=== PATIENT | male | born 1960 | race Caucasian/White ===

== ENCOUNTER 2016-10-13 19:46 | Inpatient (IN) ==
[2016-10-13] MEDS ORDERED: 0.9 % Sodium Chloride 500 ML IVC ONE (19:57)
--- NOTE | 2016-10-13 19:57 | Emergency Department Note ---
Disposition Clinical Impression: Elevated troponin, Defibrillator discharge Disposition: Admitted As Inpatient Condition: Good Time of Disposition: 22:27 General Adult HPI - General Chief complaint: ED Chest Pain Stated complaint: defibrillator firing Time Seen by Provider: 10/13/16 19:56 Nursing Notes Reviewed: Yes Vital Signs Reviewed: Yes - History of Present Illness HPI Narrative: Patient presenting to the emergency department by EMS. He is advising that his interval areas fired 32 times. He was mowing the grass when it began. He has not taken his cardiac medication in about a month [place] - Related Data Home Medications Medication Instructions Recorded Confirmed Furosemide [Lasix] 40 - 60 mg PO DAILY PRN 10/13/16 10/13/16 Allergies Allergy/AdvReac Type Severity Reaction Status Date / Time No Known Allergies Allergy Unverified 02/24/16 09:11 All systems ED: reviewed and negative except as stated. Constitutional: Denies: fever, chills ENT ED: Denies: congestion Cardiovascular: Reports: other (Defibrillator fired 32 times.). Denies: chest pain, palpitations, syncope Respiratory: Denies: cough, dyspnea Gastrointestinal: Denies: abdominal pain, nausea, vomiting, diarrhea Genitourinary: Denies: urgency, dysuria Musculoskeletal: Denies: back pain, neck pain Neurological: Denies: headache, weakness Physical Exam - General Limitations: no limitations General appearance: alert, in no apparent distress - Head Head exam: atraumatic, normocephalic, normal inspection - Eye Eye exam: Present: normal appearance, PERRL, EOMI, scleral icterus - ENT ENT exam: normal exam, normal oropharynx, mucous membranes moist - Neck Neck exam: Present: normal inspection, full ROM, trachea midline - Chest Chest inspection: Present: normal inspection, symmetric chest wall rise. Absent : tenderness - Respiratory Respiratory exam: Present: normal lung sounds bilaterally. Absent: respiratory distress - Cardiovascular Cardiovascular exam: Present: regular rate, normal rhythm. Absent: normal heart sounds - Abdominal Exam Abdominal exam: Present: soft, Non-Tender, normal bowel sounds. Absent: organomegaly - Extremities Exam Extremities exam: Present: normal inspection, full ROM, normal capillary refill. Absent: tenderness, pedal edema - Neurological Exam Neurological exam: Present: alert, oriented X3 - Psychiatric Psychiatric exam: Present: normal affect, normal mood - Skin Skin exam: Present: warm, intact, normal color, diaphoresis. Absent: cyanosis Course Course Narrative: Diaphoretic male patient brought in by EMS. States that his defibrillator fired 32 times. He was outside weed eating when it began. States that he did not lose consciousness. She did pain from the defibrillation but no chest pain. EMS states that the patient was discolored a bluish color in his left upper trunk the radiated up to his neck on their initial arrival but this did clear during transport. This is oxygen saturation was 92% on room air. They gave 4 baby aspirin for nitroglycerin and 4 mg of Zofran. Patient advises that he has not been taking his medication for approximately a month. He states he has been out of the medication he got lost in an airport [place]. He has been taking his Lasix and that is all. He has had his defibrillator for approximately 3 years and is only fired one other time. We will do a cardiac workup on patient get a d-dimer as well due to the cyanosis. We will likely admit the patient to the hospital. - Reevaluation(s) Reevaluation #1: Patient's lab work grossly unremarkable. He does have an elevated troponin which is consistent with his ICD firing. We will admit to the hospital. He has had no episodes always been in the emergency department. Time: 21:04 - Consultations Consultation #1: I spoke with Dr. Rico. He advises to start the patient on 400 mg of amiodarone by mouth while he is down here. Admit to the hospitalist that the cardiology team will see him in the morning. Time: 21:04 Consultation #2: Dr Arana wants to speak with the allergist/md before accepting the Pt. Time: 21:21 Consultation #3: Dr. Arana accepted patient in stable condition. Time: 22:23 Vital Signs Temperature 98.3 F 10/13/16 19:48 Pulse Rate 94 10/13/16 19:48 Respiratory Rate 18 10/13/16 19:48 Blood Pressure 123/80 10/13/16 19:48 O2 Sat by Pulse Oximetry 98 10/13/16 19:48 Temperature 98.3 F 10/13/16 19:48 Pulse Rate 88 10/13/16 21:33 Respiratory Rate 18 10/13/16 21:33 Blood Pressure 126/98 10/13/16 21:33 O2 Sat by Pulse Oximetry 98 10/13/16 21:33 Oxygen Delivery Oxygen Delivery Nasal Cannula Medical Decision Making - Medical Records Medical records reviewed: Yes I reviewed the patient's medical records. - Lab Data Lab results reviewed: Yes I reviewed the patient's lab results. Result diagrams: 10/13/16 20:05 10/13/16 20:05 Lab Results 10/13/16 10/13/16 10/13/16 Range/Units 20:05 20:05 20:05 WBC (4.3-11.1) K/mcL RBC (4.19-5.50) M/mcL Hgb (12.9-16.9) g/dL Hct (37.5-50.1) % MCV (83.0-100.0) fL MCH (28.0-33.3) pg MCHC (31.6-35.5) g/dL RDW (11.5-14.5) % Plt Count (140-400) K/mcL MPV (9.4-12.4) fL Immature Gran % (0-4) % Seg Neutrophils % % Lymphocytes % % Monocytes % % Eosinophils % % Basophils % % Neutrophils # (1.6-8.9) K/mcL Lymphocytes # (0.6-4.6) K/mcL Monocytes # (0.0-1.3) K/mcL Eosinophils # (0.0-0.6) K/mcL Basophils # (0.0-0.2) K/mcL PT 10.2 (9.4-12.1) Seconds INR 1.0 APTT 27.8 (26.0-36.0) Seconds D-Dimer 328 (0-500) ng/mLFEU Sodium (136-145) mEq/L Potassium (3.5-4.5) mEq/L Chloride (98-109) mEq/L Carbon Dioxide (19-29) mEq/L BUN (8-26) mg/dL Creatinine (0.72-1.25) mg/dL Est GFR ( Amer) (> 60) Est GFR (Non-Af Amer) (> 60) BUN/Creatinine Ratio (6-26) Glucose (70-99) mg/dL Calculated Osmolality (280-300) Calcium (8.6-10.8) mg/dL Magnesium (1.6-2.6) mg/dL Total Bilirubin 0.4 (0.2-1.2) mg/dL Direct Bilirubin 0.2 (0.0-0.5) mg/dL Indirect Bilirubin 0.2 (0.0-1.2) mg/dL AST 48 H (5-34) Units/L ALT 46 (0-55) Units/L Alkaline Phosphatase 69 (38-126) Units/L Troponin I (0-0.03) ng/mL B-Natriuretic Peptide 158 H (0-100) pg/mL Serum Total Protein 6.8 (6.0-8.3) g/dL Albumin 3.7 (3.5-5.0) g/dL Globulin 3.1 (2.4-3.5) g/dL Albumin/Globulin Ratio 1.2 (1.1-2.2) Urine Color (Yellow) Urine Clarity (Clear) Urine pH (5.0-8.0) pH Units Ur Specific [place] (1.010-1.025) Urine Protein (Neg-Trace) mg/dL Urine Glucose (UA) (Normal) mg/dL Urine Ketones (Negative) mg/dL Urine Blood (Negative) Urine Nitrite (Negative) Urine Bilirubin (Negative) Urine Urobilinogen (Normal) mg/dL Ur Leukocyte Esterase (Negative) Ur Culture Indicated? (NO) 10/13/16 10/13/16 10/13/16 Range/Units 20:05 20:05 20:05 WBC 6.7 (4.3-11.1) K/mcL RBC 4.98 (4.19-5.50) M/mcL Hgb 15.5 (12.9-16.9) g/dL Hct 44.3 (37.5-50.1) % MCV 89.0 (83.0-100.0) fL MCH 31.1 (28.0-33.3) pg MCHC 35.0 (31.6-35.5) g/dL RDW 12.0 (11.5-14.5) % Plt Count 197 (140-400) K/mcL MPV 9.3 L (9.4-12.4) fL Immature Gran % 0.7 (0-4) % Seg Neutrophils % 64.7 % Lymphocytes % 20.1 % Monocytes % 10.0 % Eosinophils % 3.6 % Basophils % 0.9 % Neutrophils # 4.4 (1.6-8.9) K/mcL Lymphocytes # 1.4 (0.6-4.6) K/mcL Monocytes # 0.7 (0.0-1.3) K/mcL Eosinophils # 0.2 (0.0-0.6) K/mcL Basophils # 0.1 (0.0-0.2) K/mcL PT (9.4-12.1) Seconds INR APTT (26.0-36.0) Seconds D-Dimer (0-500) ng/mLFEU Sodium 141 (136-145) mEq/L Potassium 3.7 (3.5-4.5) mEq/L Chloride 106 (98-109) mEq/L Carbon Dioxide 23 (19-29) mEq/L BUN 18 (8-26) mg/dL Creatinine 1.33 H (0.72-1.25) mg/dL Est GFR ( Amer) > 60 (> 60) Est GFR (Non-Af Amer) 56 L (> 60) BUN/Creatinine Ratio 14 (6-26) Glucose 91 (70-99) mg/dL Calculated Osmolality 293 (280-300) Calcium 8.7 (8.6-10.8) mg/dL Magnesium 2.2 (1.6-2.6) mg/dL Total Bilirubin (0.2-1.2) mg/dL Direct Bilirubin (0.0-0.5) mg/dL Indirect Bilirubin (0.0-1.2) mg/dL AST (5-34) Units/L ALT (0-55) Units/L Alkaline Phosphatase (38-126) Units/L Troponin I 0.34 H* (0-0.03) ng/mL B-Natriuretic Peptide (0-100) pg/mL Serum Total Protein (6.0-8.3) g/dL Albumin (3.5-5.0) g/dL Globulin (2.4-3.5) g/dL Albumin/Globulin Ratio (1.1-2.2) Urine Color (Yellow) Urine Clarity (Clear) Urine pH (5.0-8.0) pH Units Ur Specific [place] (1.010-1.025) Urine Protein (Neg-Trace) mg/dL Urine Glucose (UA) (Normal) mg/dL Urine Ketones (Negative) mg/dL Urine Blood (Negative) Urine Nitrite (Negative) Urine Bilirubin (Negative) Urine Urobilinogen (Normal) mg/dL Ur Leukocyte Esterase (Negative) Ur Culture Indicated? (NO) 10/13/16 Range/Units 20:25 WBC (4.3-11.1) K/mcL RBC (4.19-5.50) M/mcL Hgb (12.9-16.9) g/dL Hct (37.5-50.1) % MCV (83.0-100.0) fL MCH (28.0-33.3) pg MCHC (31.6-35.5) g/dL RDW (11.5-14.5) % Plt Count (140-400) K/mcL MPV (9.4-12.4) fL Immature Gran % (0-4) % Seg Neutrophils % % Lymphocytes % % Monocytes % % Eosinophils % % Basophils % % Neutrophils # (1.6-8.9) K/mcL Lymphocytes # (0.6-4.6) K/mcL Monocytes # (0.0-1.3) K/mcL Eosinophils # (0.0-0.6) K/mcL Basophils # (0.0-0.2) K/mcL PT (9.4-12.1) Seconds INR APTT (26.0-36.0) Seconds D-Dimer (0-500) ng/mLFEU Sodium (136-145) mEq/L Potassium (3.5-4.5) mEq/L Chloride (98-109) mEq/L Carbon Dioxide (19-29) mEq/L BUN (8-26) mg/dL Creatinine (0.72-1.25) mg/dL Est GFR ( Amer) (> 60) Est GFR (Non-Af Amer) (> 60) BUN/Creatinine Ratio (6-26) Glucose (70-99) mg/dL Calculated Osmolality (280-300) Calcium (8.6-10.8) mg/dL Magnesium (1.6-2.6) mg/dL Total Bilirubin (0.2-1.2) mg/dL Direct Bilirubin (0.0-0.5) mg/dL Indirect Bilirubin (0.0-1.2) mg/dL AST (5-34) Units/L ALT (0-55) Units/L Alkaline Phosphatase (38-126) Units/L Troponin I (0-0.03) ng/mL B-Natriuretic Peptide (0-100) pg/mL Serum Total Protein (6.0-8.3) g/dL Albumin (3.5-5.0) g/dL Globulin (2.4-3.5) g/dL Albumin/Globulin Ratio (1.1-2.2) Urine Color Yellow (Yellow) Urine Clarity Clear (Clear) Urine pH 6.0 (5.0-8.0) pH Units Ur Specific [place] 1.010 (1.010-1.025) Urine Protein Negative (Neg-Trace) mg/dL Urine Glucose (UA) Normal (Normal) mg/dL Urine Ketones Negative (Negative) mg/dL Urine Blood Negative (Negative) Urine Nitrite Negative (Negative) Urine Bilirubin Negative (Negative) Urine Urobilinogen Normal (Normal) mg/dL Ur Leukocyte Esterase Negative (Negative) Ur Culture Indicated? NO (NO) - Radiology Data Radiology results reviewed: Yes I reviewed the patient's radiology results. Chest X-Ray 10/13/16 19:57 IMPRESSION: Findings suggest congestive heart failure D/ / Luis Alberto Carcamo MD / Luis Alberto Carcamo MD Interpreting Provider: Luis Alberto Carcamo MD - EKG Data EKG #1 EKG attestation: Yes I reviewed and interpreted this EKG. EKG results narrative: Normal sinus rhythm at a rate of 92. AR interval is 163. QRS duration is 110. QT is 374. QTC is 424. There is T-wave inversion in leads 1 T-wave flattening in lead 2 T-wave inversions in lead V5 and V6. No previous EKG to compare to. No ST elevations or depression noted at this time. Attestation Statement - Attestation Attestation: I, Jack Gan MD, personally evaluated this patient and discussed their management with the resident physician. I reviewed the resident's note and agree with the documented findings, medical decision making, and plan of care. 55-year-old male presents to the emergency department by ambulance after he reports that his defibrillated fired 32 times. This happened while he was weed eating. He had no symptoms prior to the defibrillator firing. No chest pain or palpitations or shortness of breath. No dizziness or syncope. He states the defibrillator just shocked him suddenly while he was weed eating and then it Firing repeatedly. He had pain from the shocks but otherwise no chest pain. He had felt fine previously. His defibrillator has not fired for about a year. He has had it for approximately 2-1/2 years. Patient recently lost all of his medications and has not been taking them. He was on amiodarone in the past but states it was discontinued about 3 months ago. EMS reports that he was profusely diaphoretic on their arrival and was cyanotic over the left upper chest and left neck and left face. This resolved in route and here on arrival the patient is nondiaphoretic and is not cyanotic. He has no complaints at present. On examination patient is a well-developed well-nourished well-appearing male in no acute distress. He is alert and oriented 3. There is no cyanosis or diaphoresis. Chest is nontender to palpation. Breath sounds are clear and equal bilaterally. Heart regular rate and rhythm. Abdomen soft and nontender with normal bowel sounds. EKG shows a sinus rhythm with a heart rate of 92, possible left atrial enlargement, possible anterior IN of indeterminate age, lateral T wave inversion. No acute ST elevation or depression noted. No comparison. Labs reviewed and unremarkable other than a troponin 0.34. D-dimer was normal. Chest x-ray suggestive of CHF with cardiomegaly and pulmonary vascular congestion with interstitial edema. Dr. Negrete discussed the case with the allergist/md diamond picker, Dr. Rico, and he recommended oral amiodarone and hospital admission and they will follow-up with the patient in the morning. The hospitalist, Dr. Arana, was consulted and will discuss the patient with the allergist/md before accepting admission. Patient accepted for admission.
[2016-10-13 20:13] LABS: Basophils # 0.1 K/mcL (0.0-0.2); Basophils % 0.9 %; Eosinophils # 0.2 K/mcL (0.0-0.6); Eosinophils % 3.6 %; Hematocrit 44.3 % (37.5-50.1); Hemoglobin 15.5 g/dL (12.9-16.9); Immature Granulocytes % 0.7 % (0-4); Lymphocytes # 1.4 K/mcL (0.6-4.6); Lymphocytes % 20.1 %; Mean Corpuscular Hemoglobin 31.1 pg (28.0-33.3); Mean Platelet Volume 9.3 fL (9.4-12.4); Monocytes # 0.7 K/mcL (0.0-1.3); Neutrophils # 4.4 K/mcL (1.6-8.9); Platelet Count 197 K/mcL (140-400); Red Blood Count 4.98 M/mcL (4.19-5.50); Segmented Neutrophils % 64.7 %
[2016-10-13 20:18] LABS: Prothrombin Time 10.2 Seconds (9.4-12.1)
[2016-10-13 20:21] LABS: Activated Partial Thrombo Time 27.8 Seconds (26.0-36.0)
[2016-10-13 20:27] LABS: BUN/Creatinine Ratio 14 (6-26); Blood Urea Nitrogen 18 mg/dL (8-26); Calcium 8.7 mg/dL (8.6-10.8); Carbon Dioxide 23 mEq/L (19-29); Chloride 106 mEq/L (98-109); Glucose 91 mg/dL (70-99); Osmolality,Calculated 293 (280-300); Potassium 3.7 mEq/L (3.5-4.5); Sodium 141 mEq/L (136-145); eGFR For African Americans > 60 (> 60); eGFR For Non-African Americans 56 (> 60)
[2016-10-13 20:28] LABS: Albumin 3.7 g/dL (3.5-5.0); Albumin/Globulin Ratio 1.2 (1.1-2.2); Bilirubin,Direct 0.2 mg/dL (0.0-0.5); Bilirubin,Indirect 0.2 mg/dL (0.0-1.2); Bilirubin,Total 0.4 mg/dL (0.2-1.2); Globulin 3.1 g/dL (2.4-3.5); Total Protein 6.8 g/dL (6.0-8.3)
[2016-10-13 20:41] LABS: Bilirubin,Urine Negative (Negative); Blood,Urine Negative (Negative); Clarity,Urine Clear (Clear); Color,Urine Yellow (Yellow); Glucose,Urine (UA) Normal (Normal); Ketones,Urine Negative (Negative); Leukocyte Esterase,Urine Negative (Negative); Nitrite,Urine Negative (Negative); Protein,Urine Negative (Neg-Trace); Urobilinogen,Urine Normal (Normal)
[2016-10-13] MEDS ORDERED: *HR* Amiodarone 200 MG TABLET PO STA (21:05)
--- NOTE | 2016-10-13 21:41 | Event Note ---
Date of Encounter: 10/13/16 Time of Encounter: 22:00 - Cardiology Event Note Recommend starting metoprolol 25 mg po BID and amiodarone bolus and drip to load. History is below but he has known ischemic cardiomyopathy with EF 20% and coronary disease that reportedly not amenable to PCI or CABG. CAD, ischemic cardiomyopathy, systolic CHF s/p ICD diagnosed in 04/2014, CKD 3 with last Cr 1.7 03/2015. Last TTE 4-2015 EF 20% up from 10%, moderately dilated LV, mild LVH. He has an occluded LAD. Episodes of VF/syncope from end of 2013 til spring 2014 resolved after starting amiodarone - last DLCO 60%. LHC by Dr. Marshall at [facility] [place] in 2013 with patient reported unsuccessful attempt at [employer] PCI. He was referred to a surgeon in [place] who deemed him an unsuitable CABG candidate at that time.
[2016-10-13 22:10] LABS: Magnesium 2.2 mg/dL (1.6-2.6)
[2016-10-13] MEDS ORDERED: 0.9 % Sodium Chloride 250 ML ONE (22:35)
[2016-10-13] MEDS ORDERED: Amiodarone Premix 150 MG/100 ML BAG IVPB ONE (22:56)
[2016-10-13] MEDS ORDERED: Amiodarone Premix 360 MG/200 ML BAG IVC ONE (22:56)
[2016-10-13] MEDS ORDERED: *HR* Heparin 5,000 UNIT/ML VIAL IVP ONE (22:58)
[2016-10-13] MEDS ORDERED: *HR* Heparin 5,000 UNIT/ML VIAL IVP PRN (22:58)
--- NOTE | 2016-10-13 23:14 | Internal Med History&Physical ---
Date of Encounter: 10/13/16 Time of Encounter: 23:11 Assessment and Plan (1) CAD (coronary artery disease) Current visit: Yes Status: Acute Patient has occlusive coronary disease failed PCI and not candidate for cabg. initial troponin is elevated .34 likely because of ICD shock. He denies any chest pain except that related to the shock. I will start the patient on low- dose heparin drip. Aspirin and beta maci Qualifiers: Qualified Code(s): I25.10 - Atherosclerotic heart disease of [place] coronary artery without angina pectoris (2) Ischemic cardiomyopathy Current visit: Yes Status: Acute Clinically compensated (3) Chronic kidney disease Current visit: Yes Status: Acute Stable Qualifiers: Qualified Code(s): N18.9 - Chronic kidney disease, unspecified (4) Defibrillator discharge Current visit: Yes Status: Acute Patient has stopped taking all his cardiac medicines for the past 2 months. Patient will be started on metoprolol 25 mg twice a day. Amiodarone drip. Case has been discussed with wagon washer. Internal Medicine - H&P: HPI Chief complaint: ICD firing History of present illness: Mr. Dunn is a 55 year old male with a history of coronary artery disease with not amenable to PCI or cabg presents to the emergency room today because of ICD firing repeatedly. Patient mentioned that since 4 PM he started noticing repeated ICD firing approximately 32 shocks were delivered. Patient denies passing out. Patient denies feeling any palpitations, chest pain except that related to the shocks. Patient mentioned that he stopped taking all his cardiac medicines about one half month ago. According to documentation patient had episodes of VFib syncope that result after initiation of amiodarone. Patient denies any diarrhea. no recent febrile illness. Past Med Surg Social Fam HX - Past Medical History Medical history: COPD, coronary artery disease, hyperlipidemia, hypertension Psychiatric history: no psych history - Social History Smoking Status: Current every day smoker Smokeless Tobacco Status: No Alcohol use: rarely Drug use: none Internal Medicine - H&P: Meds Furosemide [Lasix] 40 - 60 mg PO DAILY PRN 10/13/16 [History] Allergies No Known Allergies Allergy (Unverified 02/24/16 09:11) All Systems PM: A 10-system review of systems was performed and is negative for pertinent findings except as documented above in the HPI. Review of systems: 10 point review of systems is negative except for HPI - Constitutional Vitals: Temp Pulse Resp BP Pulse Ox 0 F L 87 0 0/0 98 10/13/16 22:59 10/13/16 22:50 10/13/16 22:59 10/13/16 22:59 10/13/16 22:50 Exam: Gen.: patient is alert oriented times 3 not in distress. Cardiac: normal S1 S2 no additional sounds or murmurs chest: fair air entry. no active wheezing. No crackles or bronchial breathing. abdomen: soft nontender nondistended normal bowel sounds neuro: no focal deficit Internal Med - H&P Results - Labs CBC & Chem 7: 10/13/16 20:05 10/13/16 20:05
[2016-10-13 23:22] LABS: Prothrombin Time 10.5 Seconds (9.4-12.1)
[2016-10-13 23:24] LABS: Activated Partial Thrombo Time 29.8 Seconds (26.0-36.0); Hemoglobin 15.8 g/dL (12.9-16.9); Mean Corpuscular HGB Conc 35.1 g/dL (31.6-35.5); Mean Corpuscular Hemoglobin 30.9 pg (28.0-33.3); Mean Corpuscular Volume 87.9 fL (83.0-100.0); Mean Platelet Volume 9.9 fL (9.4-12.4); Platelet Count 204 K/mcL (140-400); Red Blood Count 5.12 M/mcL (4.19-5.50)
[2016-10-14] MEDS: Heparin 25,000 UNIT/500 ML D5W 25,000 UNIT/500 ML MLS IVC SCH ×2 (01:10→23:23)
[2016-10-14] MEDS: Aspirin 325 MG TABLET PO SCH ×2 (01:15→08:07)
[2016-10-14 01:22] LABS: Basophils # 0.1 K/mcL (0.0-0.2); Basophils % 0.6 %; Eosinophils # 0.2 K/mcL (0.0-0.6); Eosinophils % 1.7 %; Hematocrit 45.6 % (37.5-50.1); Immature Granulocytes % 0.5 % (0-4); Lymphocytes # 1.4 K/mcL (0.6-4.6); Lymphocytes % 14.9 %; Mean Corpuscular HGB Conc 35.1 g/dL (31.6-35.5); Mean Corpuscular Hemoglobin 30.7 pg (28.0-33.3); Mean Corpuscular Volume 87.5 fL (83.0-100.0); Monocytes # 0.8 K/mcL (0.0-1.3); Monocytes % 8.4 %; Platelet Count 211 K/mcL (140-400); Red Blood Count 5.21 M/mcL (4.19-5.50); Red Cell Distribution Width 12.1 % (11.5-14.5); Segmented Neutrophils % 73.9 %
[2016-10-14 01:25] LABS: BUN/Creatinine Ratio 14 (6-26); Blood Urea Nitrogen 16 mg/dL (8-26); Calcium 9.2 mg/dL (8.6-10.8); Carbon Dioxide 24 mEq/L (19-29); Chloride 107 mEq/L (98-109); Creatine Kinase 1635 Units/L (30-200); Glucose 101 mg/dL (70-99); Magnesium 2.6 mg/dL (1.6-2.6); Osmolality,Calculated 287 (280-300); Potassium 4.2 mEq/L (3.5-4.5); Sodium 138 mEq/L (136-145); eGFR For African Americans > 60 (> 60); eGFR For Non-African Americans > 60 (> 60)
[2016-10-14 01:46] LABS: Thyroid Stimulating Hormone 3.008 mcIU/mL (0.350-4.840)
[2016-10-14] MEDS ORDERED: 0.9 % Sodium Chloride 500 ML ONE (02:37)
[2016-10-14] MEDS: Amiodarone Premix 360 MG/200 ML BAG IVC SCH ×2 (07:27→19:38)
[2016-10-14] MEDS ORDERED: Perflutren Lipid Microsphere 1.3 ML in 0.9 % Sodium Chloride 8.7 ML IVP ONE (07:49)
[2016-10-14] MEDS: *HR* Heparin 5,000 UNIT/ML VIAL IVP PRN ×2 (08:52→16:50)
--- NOTE | 2016-10-14 12:13 | Cardiology Consult Note ---
<Venecia Medel - Last Filed: 10/14/16 12:20> Date of Encounter: 10/14/16 Time of Encounter: 10:30 Assessment and Plan (1) Defibrillator discharge Current Visit: Yes Status: Acute Per cardiology: -Patient reports "32 shocks" from ICD while weed eating at home. -Patient reports one other shock in 2013 for which he was started on amiodarone. -Patient reports not taking amiodarone for about 30 days due to being lost by airline. -Will interrogate device. Patient reports its a medtronic. -Further recommendsations pending device interrogation. (2) Elevated troponin Current Visit: Yes Status: Acute Per cardiology: -Elevated troponin 0.34, 3.2 in the setting of possible ICD shock. -ON asa, beta maci, and heparin drip. -Denies chest pain. -ECG with no ischemic changes. -Echo LVEF 20%, severe global hypokinesis, left 2ventricle is moderate to severely dilated, moderate diastolic dysfunction, RV normal size with low normal function, mild mitral regurgitation, mild-moderate tricupsid regurgitation, mild pulmonary hypertension, all wells hypokinetic. -Previous echo 08/2015 with LVEF 20%. -Will change asa to 81mg daily. -WIll start statin. (3) CAD (coronary artery disease) Current Visit: Yes Status: Chronic Per cardiology: -Known history of CAD. -Of note, most of patient's cardiac work up has been in [place] where he lived previously. Patient saw 01/2016 to establish with cardiology here. 's note reviewed and previous records were noted in his note -[facility] 2013 Occluded LAD with attempt at PRECISION AGRONOMIST, unsuccessful. At that time, patient was referred to CT surgery and was deemed unsuitable to CABG. -TTE 08/2015 with LVEF 20%, moderately dialted LV, mild LVH. Of note previous EF noted to be 10%. -Denies chest pain, shortness of breath, or increased fatigue. -ECG with no ischemic changes. -Troponin 0.34, 3.2 in the setting of reported ICD shock. -ON asa, beta blokcer and heparin drip. -Will start statin. -Will continue to monitor. -Further recommendations pending ICD interrogation. Qualifiers: Coronary Disease-Associated Artery/Lesion type: [place] artery [place] vs. transplanted heart: [place] heart Associated angina: without angina Qualified Code(s): I25.10 - Atherosclerotic heart disease of [place] coronary artery without angina pectoris (4) Ischemic cardiomyopathy Current Visit: Yes Status: Chronic Per cardiology: -Known ischemic cardiomyopathy. -Echo 10/14/16 with LVEF 20%. -Last cath 2013 with unsuccessful attempt at LAD PRECISION AGRONOMIST. -Patient reports has metronic ICD. -reports 32 ICD shocks, states one previous episode in 2013 for which he was placed on amio. -Euvolemic on exam -ON asa, beta maci. -Will interrogate ICD> -WIll start yaya inhibitor, of note per review of last office note, patient was on lisinopril at home. (5) Tobacco abuse Current Visit: Yes Status: Chronic Per cardiology: -KNown tobacco abuse. -Reports smoking 0.5ppd for 25 years. -I spent 3-5 minutes reviewing smoking cessation education with patient. (6) Renal insufficiency Current Visit: Yes Status: Chronic Per cardiology: -Creatinine 1.33 on amdisson, creat 1.3 in May. -Per review of records, creatinine in [place] noted to be 1.7. -Management per primary service. (7) Hypertension Current Visit: Yes Status: Chronic Per cardiology: -KNown history of hypertension. -On beta maci. -BPs currently 100-110s. -Will add low dose yaya inhibitor. -Will continue to monitor. Qualifiers: Hypertension type: essential hypertension Qualified Code(s): I10 - Essential (primary) hypertension Discussion w patient/family: The assessment and plan as outlined above was discussed with the patient and/or family members who expressed understanding and agreement. All questions were answered. Thank you for involving us in the care of your patient. Please call with any questions. Discussed and reviewed with . History of Present Illness Consult date: 10/13/16 Requesting physician: Ximena Negrete Consult reason: defrillator shock Chief complaint: defibrillator shock History of present illness: Mr. Dunn is a 55 year old male with a relevant past medical history of ischemic cardiomyopathy, CAD, HTN, CHF, ICD placement. Patient states he was is his normal state of health when he was weed eating at his house and his ICD shocked him "32 times." Patient denies loss of consciousness. Patient reports one other ICD shock in 2013. Patient states at that time he was started on amiodarone and he had been doing well. Patient states he has been out of his amiodarone for about 30days since the airline lost his luggage. Patient states amiodarone was prescribed by his previous loan interviewer mortgage in [place]. Patient denies chest pain, shortness of breath, or increased fatigue. Patient reports smoking 0.5ppd for 25 years. Past Med Surg Social Fam HX - Past Medical History Attestation: Yes The following information was validated with the patient. Source: patient, old records reviewed, obtained from family Medical history: CHF, COPD, coronary artery disease, hyperlipidemia, hypertension, myocardial infarction Psychiatric history: no psych history - Past Surgical History Surgical History: angioplasty/stent, herniorrhaphy - Social History Smoking Status: Current every day smoker Packs per day: 0.5 Smokeless Tobacco Status: No Alcohol use: rarely Drug use: none - Family History Mother History Unknown: Yes Adopted: Yes Medications and Allergies Furosemide [Lasix] 40 - 60 mg PO DAILY PRN 10/13/16 [History] Allergies No Known Allergies Allergy (Unverified 02/24/16 09:11) All Systems Review: A 10-system review of systems was performed and is negative for pertinent findings except as documented above in the HPI. - Cardiovascular Cardiovascular: as per HPI, other (ICD shock) Physical Examination Vital Signs, Last 4 Hours Temp Pulse Resp BP Pulse Ox 10/14/16 11:32 97.8 F 71 14 111/85 95 10/14/16 08:30 66 General: Conversant, No Apparent Distress HEENT: Atraumatic, Normocephaly Neck: No JVD, Normal carotid pulses Cardiac: Reg Rate and Rhythm, Normal S1 and S2, No Murmur Lungs: Normal Breath Sounds, No Wheeze, Rales, Rhonchi Neuro: Alert and responsive, No focal deficits noted Abdomen: Soft, Non-Tender Skin: No rashes noted on visualized skin Musculoskeletal: No Chest Wall Tenderness Extremities: No Clubbing, No Cyanosis, No Edema, Normal Pulses Results 10/14/16 00:55 10/14/16 00:55 Lab Results Impressions Chest X-Ray 10/13/16 19:57 IMPRESSION: Findings suggest congestive heart failure D/ / Luis Alberto Carcamo MD / Luis Alberto Carcamo MD Interpreting Provider: Luis Alberto Carcamo MD Active Medications Aspirin (Aspirin) 325 mg PO DAILY [facility] Stop: 04/14/17 23:01 Last Admin: 10/14/16 08:07 Dose: 325 mg Heparin Sodium (Porcine) (Heparin) 4,000 unit IVP Q6HR PRN PRN Reason: SEE COMMENTS Stop: 04/14/17 22:59 Heparin Sodium (Porcine) (Heparin) 2,000 unit IVP Q6H PRN PRN Reason: SEE COMMENTS Stop: 04/14/17 22:59 Last Admin: 10/14/16 08:52 Dose: 2,000 unit Amiodarone HCl/Dextrose (Amiodarone Drip Premix 360mg/200ml) 360 mg in 200 mls @ 16.667 mls/hr IVC CONT PANTERA PRN Reason: 0.5 MG/MIN Stop: 04/14/17 23:01 Last Admin: 10/14/16 07:27 Dose: 0.5 mg/min, 16.667 mls/hr Heparin Sodium/Dextrose (Heparin 25,000 Unit/500 Ml D5w) 25,000 unit in 500 mls @ 19.984 mls/hr IVC .Q24H PANTERA; 11.78 UNIT/KG/HR PRN Reason: Protocol Stop: 04/14/17 23:01 Last Titration: 10/14/16 08:53 Dose: 13.55 unit/kg/hr, 23 mls/hr Metoprolol Tartrate (Lopressor) 12.5 mg PO BID [facility] Stop: 04/15/17 21:01 - Imaging and Cardiology Chest Xray: report reviewed Echo: report reviewed - EKG Interpretation EKG results cardiology: personally reviewed (ECG with sinus rhythm, HR 92.), other (Telemetry reviewed with average HR 72, sinus rhythm. PVCs and couplet PVCs noted. PACs noted.) Consult Discharge Plan - Plan Referrals: Hai Rivers DO [Primary Care Provider] - <Roshni Siegel - Last Filed: 10/14/16 12:52> Date of Encounter: 10/14/16 Assessment and Plan Discussion w patient/family: The assessment and plan as outlined above was discussed with the patient and/or family members who expressed understanding and agreement. All questions were answered. Thank you for involving us in the care of your patient. Please call with any questions. History of Present Illness History of present illness: Mr. Dunn is a 55 year old male All Systems Review: A 10-system review of systems was performed and is negative for pertinent findings except as documented above in the HPI. Physical Examination Vital Signs, Last 4 Hours Temp Pulse Resp BP Pulse Ox 10/14/16 11:32 97.8 F 71 14 111/85 95 Results 10/14/16 00:55 10/14/16 00:55 Lab Results 10/13/16 10/13/16 10/14/16 23:11 23:11 00:55 WBC 10.0 9.4 Hgb 15.8 16.0 Hct 45.0 45.6 Plt Count 204 211 INR 1.0 APTT 29.8 Sodium Potassium Chloride Carbon Dioxide BUN Creatinine Glucose Calcium Magnesium Troponin I TSH 10/14/16 10/14/16 10/14/16 00:55 00:55 00:55 WBC Hgb Hct Plt Count INR APTT Sodium 138 Potassium 4.2 Chloride 107 Carbon Dioxide 24 BUN 16 Creatinine 1.12 Glucose 101 H Calcium 9.2 Magnesium 2.6 Troponin I 3.20 H* TSH 3.008 10/14/16 10/14/16 10/14/16 07:57 07:57 12:01 WBC Hgb Hct Plt Count INR APTT 45.6 H D Sodium Potassium Chloride Carbon Dioxide BUN Creatinine Glucose Calcium Magnesium Troponin I 4.77 H* 3.80 H* TSH - Attending Attestation I examined this patient and my medical decision-making was reviewed with the WRAP TURNER/PA/Advanced Practice Nurse/Resident Physician. I agree with the documented findings, disposition and treatment plan. Patient presents with concerns for device discharge. He admits to not taking amiodarone for at least 30 days if not several months. He previously was placed on amiodarone for ICD discharge in 2013. He is presently being loaded and will then start PO. We will interrogate his device. Echo demonstrated severely reduced LVEF, known previously. He does not appear to be volume overload and does not describe new symptoms of congestion or chest pain recently. Suspect troponin elevation is secondary to possible device discharge. Will trend. Continue medical therapy for now.
--- NOTE | 2016-10-14 14:58 | Event Note ---
Date of Encounter: 10/14/16 Time of Encounter: 14:55 - Cardiology Event Note Per device check single chamber ICD with 32 episodes of defibrillation for suspected ventricular fibrillation. 7 failed therapies, 6 aborted shocks, and 1/ 5 successful pace termination. Patient is on amiodarone drip and heparin drip. Will continue to monitor patient. Discussed and reviewed with .
[2016-10-15 04:55] LABS: Basophils # 0.1 K/mcL (0.0-0.2); Basophils % 0.9 %; Eosinophils # 0.3 K/mcL (0.0-0.6); Hemoglobin 14.6 g/dL (12.9-16.9); Immature Granulocytes % 0.4 % (0-4); Lymphocytes # 1.7 K/mcL (0.6-4.6); Lymphocytes % 24.7 %; Mean Corpuscular Hemoglobin 30.9 pg (28.0-33.3); Mean Corpuscular Volume 91.1 fL (83.0-100.0); Mean Platelet Volume 10.6 fL (9.4-12.4); Monocytes # 0.6 K/mcL (0.0-1.3); Neutrophils # 4.1 K/mcL (1.6-8.9); Platelet Count 171 K/mcL (140-400); Red Blood Count 4.72 M/mcL (4.19-5.50); Red Cell Distribution Width 12.3 % (11.5-14.5)
[2016-10-15 05:05] LABS: BUN/Creatinine Ratio 14 (6-26); Blood Urea Nitrogen 18 mg/dL (8-26); Calcium 8.7 mg/dL (8.6-10.8); Carbon Dioxide 24 mEq/L (19-29); Chloride 109 mEq/L (98-109); Glucose 101 mg/dL (70-99); Magnesium 2.4 mg/dL (1.6-2.6); Osmolality,Calculated 292 (280-300); Potassium 4.1 mEq/L (3.5-4.5); Sodium 140 mEq/L (136-145); eGFR For African Americans > 60 (> 60); eGFR For Non-African Americans 57 (> 60)
[2016-10-15] MEDS: Amiodarone Premix 360 MG/200 ML BAG IVC SCH (07:33)
[2016-10-15] MEDS ORDERED: Aspirin 81 MG TAB.CHEW PO SCH (09:00)
[2016-10-15] MEDS ORDERED: *HR* Amiodarone 200 MG TABLET PO SCH (09:30)
--- NOTE | 2016-10-15 09:59 | Pre-Sedation Evaluation ---
Pre-sedation evaluation - Pre-sedation checklist Date of procedure: 10/15/16 Procedure: c Recent Vitals: Last Vital Signs Temp 97.7 F 10/15/16 07:27 Pulse 66 10/15/16 07:38 Resp 16 10/15/16 07:27 BP 104/89 10/15/16 07:27 Pulse Ox 96 10/15/16 07:27 H&P (including ROS) documented in medical record: Yes Previous reaction to sedatives/anesthetics: No Dietary Status: NPO after Midnight ASA Classification *see protocol: CLASS II-Mild systemic disease Plan of Care: Pt appropriate candidate for procedure/moderate/conscious sedation , Risks/benefits of procedure/sedation discussed w/ patient/family
--- NOTE | 2016-10-15 10:18 | Event Note ---
Date of Encounter: 10/15/16 Time of Encounter: 08:30 - Cardiology Event Note Patient with confirmed 32 ICD shocks. Troponin peak at 4.77. Amiodarone 400mg BID started today. Amiodarone drip stopped. Dsicussed and reviewed with and who agrees patient needs further ischemic evaluation due to ICD shocks. PLan for LHC today. Discussed with patient regarding LHC. Patient agreeable. Risks and benefits of LHC explained. Patient states understanding and agrees with plan. Further recommendations pending LHC.
[2016-10-15] MEDS ORDERED: Verapamil 5 MG/2 ML VIAL ONE (11:10)
[2016-10-15] MEDS ORDERED: Nitroglycerin 1,000 MCG/10 ML VIAL IV ONE (11:10)
[2016-10-15] MEDS ORDERED: Heparin 1,000 UNITS/500 mL NS 500 ML ONE (11:10)
[2016-10-15] MEDS ORDERED: 0.9 % Sodium Chloride 1,000 ML ONE ×2 (11:10→11:21)
[2016-10-15] MEDS ORDERED: *HR* Heparin 10,000 UNIT/10 ML VIAL ONE (11:10)
[2016-10-15] MEDS ORDERED: *HR* FentaNYL (PF) 250 MCG/5 ML VIAL ONE (11:41)
[2016-10-15] MEDS ORDERED: *HR* Midazolam HCl 5 MG/5 ML VIAL IVP ONE (11:41)
--- NOTE | 2016-10-15 12:26 | Invasive Diagnostic Lab Proc ---
Name: Chaparro Dunn Date of Study: 10/15/2016 Date: 1960 Ht: 68.1in Medical Record#: [id number] Age: 55 Wt: 182.98lb Gender: Male BSA: 1.97 Order #: [id number] BMI: 27.73 Physicians Procedure Physician: Ector Rico MD, [facility] Referring MD: Referring MD: Staff Name Position Time In Sites, Zahra RT (R) Monitor 11:49 AM Annetta Brown RT Scrub 11:49 AM Mark Foote RN Metal Fabricator Apprentice 11:49 AM Indications Indication Non-Stemi Procedures Performed Procedure L HRT ARTERY/VENTRICLE ANGIO Pre-Procedure Checklist Informed consent is complete signed and on chart. H\\T\\P is on chart. ID band is on and ID verified with patient. Patient NPO for procedure The procedure was described for the patient and questions were answered. Blood Pressure: 104/89 ECG is on chart. Rhythm: NSR Plan of Care Patient will tolerate the procedure without complications. Adequate level of comfort will be maintained. Hemodynamics will remain stable Patient will recover from procedure without complications. Respiratory function will be maintained. Cardiac rhythm will remain stable. Patient temperature will be maintained. Patient and/or family have verbalized understanding of the procedure. Patient Education Chief Complaint/Reason for Test: Cardiac Cath Developmental Category: Adult (18-64 years) Developmentally Appropriate for Age: Yes Learning Barriers: None Education Needs: Procedure Education Method: Verbal Information Taught: Cardiac Cath Educational Evaluation: Able to repeat information Intravenous Access Time IV Size Location DC'd Fluid/Drip Rate Units RN 18g 1 1/4" Patent On Arrival Lt Arm 18g 1 1/4" Patent On Arrival Rt Arm 0.9NaCl 25 ml/hr Mark Foote RN Allergies No Known Allergies Vital Signs Time BP (mmHg) HR (bpm) O2 Sat. RR (bpm) LOC 104 / 89 66 96 % 16 5 = Fully awake and oriented or at pre-proc level 11:50 AM / % 5 = Fully awake and oriented or at pre-proc level 11:51 AM / % 4 = Oriented but drowsy 11:45 AM 106 / 72 70 98 % 17 11:49 AM 104 / 73 69 95 % 27 11:54 AM 102 / 69 69 92 % 29 11:59 AM 101 / 62 64 97 % 19 12:04 PM 92 / 61 62 95 % 20 12:09 PM 101 / 56 66 95 % 10 12:14 PM 90 / 62 % Procedural Medications Time Medication Dose Units Method Given By 11:46 AM Oxygen 2 L/min nasal cannula Mark Foote RN 11:46 AM Versed 2 mg Intravenous Mark Foote RN 11:46 AM Fentanyl 50 mcg Intravenous Mark Foote RN 11:57 AM Lidocaine 2% 1 ml Subcutaneous Ector Rico MD, FACC 11:59 AM Nitroglycerin 200 mcg Verapamil 2.5 mg Intraarterial Ector Rico MD, [facility] ASA Classification: CLASS II- Mild systemic disease (i.e. well-controlled diabetes, hypertension, asthma, cigarette smoking) Preeti Score Preprocedure Postprocedure Activity 2- Moves 4 extremities sustained head lift Activity Circulation 2- SBP +/= 20 points of pre-anesthetic level Circulation Consciousness 2- Awake and alert oriented x 3 Consciousness O2 Saturation 2- Able to maintain O2 satruation of 92% on room air O2 Saturation Respiratory 2- Able to deep breathe and cough well Respiratory Total Score 10 Total Score Contrast Agent: Isovue Diagnostic Contrast: 83 ml Total Contrast: 83 ml Fluoro Dose: 292 mGy Procedure Log Time Note Enter By 11:10 AM CathStat 11:13 AM Patient charges- Angio tray pack, Navilyst 3mm J, Pulse Oximetry and ACIST tubing and transducer tsites 11:13 AM Clinical Presentation: Non-STEMI tsites 11:35 AM Pt arrived to laborer 2 at 11:35 tsites 11:35 AM Zahra Barrett RT (R) Position: Monitor Time in: 11:35 tsites 11:35 AM Annetta Brown RT Position: Scrub Time in: 11:35 tsites 11:35 AM Mark Foote RN Position: Metal Fabricator Apprentice Time in: 11:35 tsites 11:36 AM Case Delayed No tsites 11:37 AM Physician arrived 11:37 tsites 11:37 AM Meet and greet completed tsites 11:37 AM Sign in performed according to hospital policy. tsites 11:37 AM Procedure start 11:37 tsites 11:44 AM Vitals capture started with the following parameters, Patient=Adult, Interval=5 min, Initial Vldpnmfi=569 mmHg, Deflation Rate=5 mmHg, Cuff placed on Right Arm 11:45 AM HR=70 bpm, VXVJ=146/72 mmhg, SpO2=98.0 %, Resp=17 B/min 11:45 AM Hair removed from procedure site in holding area using clippers. Right wrist and right groin prepped with Chloraprep by Mark Foote RN, safety strap applied then patient was draped. Skin intact. tsites 11:46 AM Time: 11:46 Oxygen on at 2 L/min per nasal cannula by Mark Foote RN tsites 11:46 AM Time: 11:46 Versed 2 mg Intravenous Given by Mark Foote RN tsites 11:46 AM Time: 11:46 Fentanyl 50 mcg Intravenous Given by Mark Foote RN tsites 11:49 AM Recorded ECG: HR=78 Condition=Condition 1 11:49 AM HR=69 bpm, TNBX=031/73 mmhg, SpO2=95.0 %, Resp=27 B/min 11:50 AM Time: 11:50 Patient comfortable and pain free: Yes tsites 11:51 AM Time: 11:50LOC: 5 = Fully awake and oriented or at pre-proc level tsites 11:53 AM Pressure channel 1 zeroed. 11:54 AM HR=69 bpm, UANP=111/69 mmhg, SpO2=92 %, Resp=29 B/min 11:57 AM Time out performed according to hospital policy tsites 11:58 AM Time: 11:57 1 ml Lidocaine 2% to right radial Subcutaneous Given by Ector Rico MD, [facility] tsites 11:59 AM HR=64 bpm, RQFX=342/62 mmhg, SpO2=97.0 %, Resp=19 B/min, Comment=nsr 11:59 AM Access obtained by percutaneous puncture. 6Fr 10cm Terumo Glidesheath sheath placed in right Radial artery. [id number] tsites 11:59 AM Time: 11:59 Patient given 200 mcg Nitroglycerin, and 2.5 mg Verapamil Intraarterial by Ector Rico MD, [facility] tsites 12:01 PM 5Fr TIG catheter inserted over the wire [facility] tsites 12:01 PM 0.035 260cm Navilyst 3mm J wire [id number] tsites 12:02 PM Wire removed tsites 12:03 PM Pressure channel 1 zeroed. 12:03 PM RCA angiography performed in multiple views. tsites 12:03 PM Recorded Pressure: Ao, HR=67, Condition=Condition 1 (Aorta) Ao 81/68/73 12:04 PM wire reinserted catheter removed tsites 12:04 PM 5Fr FL3.5 catheter inserted over the wire [id number] tsites 12:04 PM HR=62 bpm, NIBP=92/61 mmhg, SpO2=95.0 %, Resp=20 B/min, Comment=nsr 12:05 PM Recorded Pressure: Ao, HR=61, Condition=Condition 1 (Aorta) Ao 84/69/75 12:05 PM LCA angiography performed in multiple views. tsites 12:06 PM Time: 11:50 Patient comfortable and pain free: Yes tsites 12:06 PM Time: 11:51LOC: 4 = Oriented but drowsy tsites 12:08 PM [facility]ed [facility] 12:08 PM 5Fr Pigtail catheter inserted over the wire D[facility] 12:08 PM Catheter selectively placed in left ventricle tsites 12:08 PM Bolus angiogram of left Ventricle complete: 12 ml/sec for a total of 35 mls [facility] 12:08 PM Coronary Dominance: Left tsites 12:08 PM Lesion found in Proximal LAD. Pre Stenosis: 60 Pre TUAN Flow: tsites 12:09 PM Lesion found in Mid LAD. Pre Stenosis: 100 Pre TUAN Flow: tsites 12:09 PM Lesion found in Left PDA. Pre Stenosis: 50 Pre TUAN Flow: tsites 12:09 PM Proximal Left Anterior Descending Coronary Artery with 60% stenosis. If graft is supplying this territory, 0 % stenosis. tsites 12:09 PM Mid/Distal Left Anterior Descending Coronary Artery and diagonal branches with 100% stenosis. If graft is supplying this area, 0 % stenosis tsites 12:09 PM HR=66 bpm, XKTQ=861/56 mmhg, SpO2=95.0 %, Resp=10 B/min 12:09 PM Recorded Pressure: LV, HR=66, Condition=Condition 1 (Left Ventricle) LV 85/19/31 12:10 PM Recorded Pressure: LV, Ao, HR=66, Condition=Condition 1 (Left Ventricle) LV 85/18/28, (Aorta) Ao 81/60/68 12:11 PM Catheter removed tsites 12:11 PM Procedure completed at 12:11 ites 12:11 PM Sign out completed: Radiation Dose 292 mGy Fluoro Time: 1.7 Isovue 370 - 500ml contrast 83 ml given by Ector Rico MD, [facility]. Complications: NoneCardiac Rehab Consult needed: NoConfirmed administered medications: Yes tsites 12:11 PM Isovue 370 - 500ml,1 Bottle(s) used. tsites 12:11 PM Arterial sheath pulled, Vasc Band closure device used and was Successful S/N. tsites 12:11 PM 9 ml air in Vasc Band. tsites 12:12 PM Post ECG NSR tsites 12:12 PM Post Blood Pressure 101/56 tsites 12:12 PM 12:12 Post Pulses Rt Radial 2+ tsites 12:12 PM Information taught Cardiac Cath and Vasc Band tsites 12:12 PM Education needs Procedure, Plan of Care, and Responsibilities of Patient in Care tsites 12:12 PM Learning barriers :None tsites 12:12 PM Education Methods Verbal tsites 12:12 PM Education evaluation Able to repeat information tsites 12:12 PM Site status No bleeding/hematoma - Rt Wrist as reported by Annetta Brown RT at 12:12 tsites 12:13 PM NIBP STAT measurement started. 12:14 PM Delay to floor No tsites 12:14 PM Patient out of room: 12:14 tsites 12:14 PM NIBP=90/62 mmhg 12:15 PM Report given to javid FELTON Pt taken to 2N Room #15. 12:15 tsites 12:15 PM Family placed in consult room. tsites Complications Complication None Hemodynamics Pressures Site Systolic/A Wave Diastolic/V Wave Mean AO 81 68 73 AO 84 69 75 LV 85 19 31 LV 85 18 28 AO 81 60 68 Post Procedure Information Blood Pressure: 101/56 mmHg Rhythm: NSR Post procedural instructions were given Closure Device Time Device Success/Fail 10/15/2016 12:14:00 PM Mechanical Compression Successful Site Checks Time Location Status Staff Sheath In? Note 12:12 PM Rt Wrist No bleeding/hematoma Annetta Brown RT Pulses Time Site Pre-Procedure Post-Procedure Note Bilateral DP \\T\\ PT 2+ Bilateral radial 2+ 12:12:00 PM Rt Radial 2+ Updated by Zahra Barrett RT (R) on 10/15/2016 12:19:28 PM Zahra Barrett RT electronically signed on 10/15/2016 12:19:48 PM with status of Final
--- NOTE | 2016-10-15 13:05 | Event Note ---
Date of Encounter: 10/15/16 Time of Encounter: 13:03 - Cardiology Event Note Per discussion with . [facility] with no intervention needed. States has DYNAM[employer] AX SOLUTION ARCHITECT of LAD with collaterals, otherwise moderate CAD. Cardiology will sign off and will follow in outpatient setting. Recommend amiodarone 400mg BID until seen by cardiology. Outpatient follow up set.
--- NOTE | 2016-10-15 13:34 | Discharge Summary ---
Date of Encounter: 10/15/16 Time of Encounter: 13:31 - Discharge Diagnosis (1) Defibrillator discharge Priority: Primary Status: Acute Comments: For suspected ventricular fibrillation (2) Elevated troponin Priority: Secondary Status: Acute (3) CAD (coronary artery disease) Priority: Secondary Status: Chronic Qualifiers: Coronary Disease-Associated Artery/Lesion type: [place] artery [place] vs. transplanted heart: [place] heart Associated angina: without angina Qualified Code(s): I25.10 - Atherosclerotic heart disease of [place] coronary artery without angina pectoris (4) Ischemic cardiomyopathy Priority: Secondary Status: Chronic (5) Chronic kidney disease Priority: Secondary Status: Chronic Qualifiers: Chronic kidney disease stage: stage 2 (mild) Qualified Code(s): N18.2 - Chronic kidney disease, stage 2 (mild) (6) Hypertension Priority: Secondary Status: Chronic Qualifiers: Hypertension type: essential hypertension Qualified Code(s): I10 - Essential (primary) hypertension - Discharge Medications Prescriptions: Amiodarone [Cordarone] 400 mg PO BID #60 tablet Aspirin 81 mg PO DAILY #30 tab.chew Atorvastatin [Lipitor] 40 mg PO HS #30 tablet Metoprolol [Lopressor] 12.5 mg PO BID #60 tablet Home Medications: Furosemide [Lasix] 40 - 60 mg PO DAILY PRN 10/13/16 [History] Amiodarone [Cordarone] 400 mg PO BID #60 tablet 10/15/16 [Rx] Aspirin 81 mg PO DAILY #30 tab.chew 10/15/16 [Rx] Atorvastatin [Lipitor] 40 mg PO HS #30 tablet 10/15/16 [Rx] Metoprolol [Lopressor] 12.5 mg PO BID #60 tablet 10/15/16 [Rx] Allergies/Adverse Reactions: Allergies No Known Allergies Allergy (Unverified 02/24/16 09:11) Procedures/tests Complete & Pending: Procedures Performed prior 72 hours Category Date Time Status CL Cardiac Catheterization [CL] Routine Manufacturing Coordinator 10/15/16 10:02 Ordered Date of admission: 10/14/16 13:47 Primary care physician: Hai Rivers, Consults: 10/13/16 20:47 Consult to Cardiology [CONS] Routine Comment: Consulting Provider: Cardiology Romina Reason for Consult: defib fired Call Completed: Yes Discharging clinician: Debbie Nash Anticipated date of discharge: 10/15/16 - Patient Status Disposition: Home, Self-Care Condition: Good Functional capacity at discharge: independent ambulation Overall status at discharge: patient is progressing back to baseline - Discharge Instructions Follow Up With: Hai Rivers DO [Primary Care Provider] - Additional Instructions: Follow-up with cardiology in 1 week - Diet and Activity Activity: increase activity as tolerated Diet: low fat, low cholesterol, low salt diet Hospital course: Mr. Dunn is a 55 year old male patient with a history of coronary artery disease, COPD, status post AICD placement, cardiomyopathy who came to the ER after having his defibrillator discharge about 32 times prior to presentation in a brief period of time. The patient had previously been on amiodarone but had not taken it for about 30 days as he had lost his medication with his luggage on a recent trip. The patient's AICD was interrogated and he was found to have 32 episodes of defibrillation for suspected ventricular fibrillation. Cardiology evaluated him and recommended restarting him on amiodarone after loading him intravenously. Patient also had an elevation in his troponin to a peak of 4.77. He had been started on heparin on suspicion of associated non-ST elevation AL. Cardiology proceeded with left heart catheterization today which showed chronic total occlusion of LAD with collaterals and moderate coronary artery disease. Patient will continue to take aspirin, statin and beta maci in addition to amiodarone. Patient has been placed on 400 mg amiodarone twice daily and will follow up with cardiology for further management. - Time Spent with Patient Total time spent providing and/or coordinating discharge services: Less than 30 minutes (25 min) - Constitutional Vitals: Temp Pulse Resp BP Pulse Ox 97.6 F 70 16 95/66 97 10/15/16 12:29 10/15/16 13:18 10/15/16 12:29 10/15/16 13:18 10/15/16 12:29 General appearance: Present: cooperative, A&O X 3, answers questions appropriately - Respiratory Respiratory exam: Present: CTAB. Absent: accessory muscle use, rales, rhonchi, wheezes - Cardiovascular Cardiovascular exam: Present: RRR, +S1, +S2. Absent: diastolic murmur, gallop, rubs, systolic murmur - GI/Abdominal GI/Abdominal exam: Present: normal bowel sounds, soft, no peritoneal signs. Absent: distended, tenderness - Extremities Exam Extremities exam: Present: warm, radial pulses palpable and symetrical. Absent : calf tenderness, cyanotic, pedal edema - VTE Documentation of Mechanical Device: Intermittent pneumatic compression device - Attending Attestation This document has been at least partially created by [employer] recognition technology by Dr. Nash. Errors in grammar, wording or other phrases may exist. If errors are found after the documentation is signed, they will be addressed individually in the addendum section of this document when appropriate.
[2016-10-15 16:04] VITALS: BP 87/57
--- NOTE | 2016-10-16 12:17 | Invasive Diagnostic Lab ---
Name: Chaparro Dunn Date of Study: 10/15/2016 Date: 1960 Ht: 173.0 cm /68.1 in Medical Record#: [id number] Age: 55 Wt: 83. kg / 182.98 lb Account/Order#: [id number] Gender: Male BSA: 1.97 Order #: [id number] Fluoro Dose: 292 mGy BMI: 27.73 Procedure Physician: Ector Rico MD, FACC Referring MD: Referring MD: Procedures Performed: LEFT HEART CATH Indications: Non-Stemi Impressions: There is severe one vessel coronary artery disease. LV- severely abnormal EF10% Dilated, Non-ischemic cardiomyopathy Recommendations: Optimal medical therapy of patient's disease. Aggressive risk factor modification. History/Risk Factors: Hypertension Dyslipidemia CHF Current/Recent Smoker Chronic Lung Disease Prior NC Procedure Access obtained in the right Radial artery by percutaneous puncture Complications: None Contrast: Isovue 83ml Closure Device: Mechanical Compression Hemodynamics: Pressures Site Systolic/ A Wave Diastolic/ V Wave End Diastolic/ Mean HR AO 81 68 73 67 AO 84 69 75 61 LV 85 19 31 66 LV 85 18 28 65 AO 81 60 68 66 LV Ventriculography Ejection Method: LV Gram Ejection Fraction: 10% Wall Motion: OWUSU Anterobasal Severe Hypokinesis Anterolateral Severe Hypokinesis Apical: Severe Hypokinesis Inferoapical Severe Hypokinesis Inferobasal Severe Hypokinesis Coronary Dominance: Left Lesion Findings/Interventions * Left Main Coronary Artery The LMCA is angiographically free of disease. * Left Anterior Descending There is a 60% stenosis in the Proximal LAD (supplies Diagonal 1) There is a 100% stenosis in the Mid LAD with large diagonal adjacent to smooth stump. The lesion has collaterals which feed from right to left. * Circumflex There is a 50% stenosis in the Left PDA. * Right Coronary Artery The RCA is angiographically free of disease - nondominant. Provides sizeable mature collaterals to LAD Updated by Zahra Barrett RT (R) on 10/15/2016 12:20:01 PM Ector Rico MD, FACC electronically signed on 10/16/2016 12:11:58 PM with status of Final
[2016-10-16 18:44] LABS: CK-BB (CK isoenzymes) 0 % (0-0); CK-MB (CK isoenzymes) 2 % (0-4); CK-MM (CK-isoenzymes) 98 % (96-100)
--- NOTE | 2016-10-17 07:21 | Electrocardiograph Report ---
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
[2016-10-17 08:47] LABS: CK Total (Ck Isoenzymes) 1556 U/L (20-200)
--- NOTE | 2016-10-17 17:12 | Electrocardiograph Report ---
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
[2016-10-20 10:27] LABS: CK-BB (CK isoenzymes) 0 % (0-0); CK-MB (CK isoenzymes) 2 % (0-4); CK-MM (CK-isoenzymes) 98 % (96-100)
[2016-10-20 13:50] LABS: CK Total (Ck Isoenzymes) 2596 U/L (20-200)
== END 2016-10-15 17:55 | disposition home or self-care (01) | DRG 287 ==
LOC: EMEROO 19:46 → 2NNU 19:46
PROVIDERS: ADMIT Hospitalist; ATTEND Internal Medicine

== ENCOUNTER 2016-11-25 17:18 | Inpatient (IN) ==
[2016-11-25] MEDS ORDERED: 0.9 % Sodium Chloride 500 ML IVC ONE (17:31)
[2016-11-25] MEDS ORDERED: Aspirin 81 MG TAB.CHEW PO ONE (17:31)
[2016-11-25] MEDS ORDERED: *HR* LORazepam 2 MG/ML VIAL IVP ONE (17:46)
[2016-11-25 17:47] LABS: Basophils # 0.1 K/mcL (0.0-0.2); Basophils % 0.9 %; Eosinophils # 0.4 K/mcL (0.0-0.6); Eosinophils % 6.4 %; Hematocrit 45.2 % (37.5-50.1); Hemoglobin 15.6 g/dL (12.9-16.9); Immature Granulocytes % 0.4 % (0-4); Lymphocytes # 2.3 K/mcL (0.6-4.6); Lymphocytes % 34.1 %; Mean Corpuscular HGB Conc 34.5 g/dL (31.6-35.5); Mean Corpuscular Hemoglobin 30.8 pg (28.0-33.3); Mean Corpuscular Volume 89.2 fL (83.0-100.0); Mean Platelet Volume 9.6 fL (9.4-12.4); Monocytes # 0.7 K/mcL (0.0-1.3); Monocytes % 9.7 %; Neutrophils # 3.2 K/mcL (1.6-8.9); Platelet Count 210 K/mcL (140-400); Red Blood Count 5.07 M/mcL (4.19-5.50); Red Cell Distribution Width 12.4 % (11.5-14.5); Segmented Neutrophils % 48.5 %
[2016-11-25 17:57] LABS: Prothrombin Time 10.9 Seconds (9.4-12.1)
[2016-11-25 17:59] LABS: Activated Partial Thrombo Time 28.8 Seconds (26.0-36.0)
[2016-11-25 18:02] LABS: BUN/Creatinine Ratio 12 (6-26); Blood Urea Nitrogen 18 mg/dL (8-26); Calcium 8.8 mg/dL (8.6-10.8); Carbon Dioxide 20 mEq/L (19-29); Chloride 107 mEq/L (98-109); Glucose 116 mg/dL (70-99); Magnesium 2.2 mg/dL (1.6-2.6); Osmolality,Calculated 293 (280-300); Potassium 3.6 mEq/L (3.5-4.5); Sodium 140 mEq/L (136-145); eGFR For African Americans > 60 (> 60); eGFR For Non-African Americans 50 (> 60)
--- NOTE | 2016-11-25 18:28 | Emergency Department Note ---
Disposition Clinical Impression: Cardiac fibrillation, Ventricular fibrillation Disposition: Admitted As Inpatient Condition: Good Referrals: NO,PCP [Primary Care Provider] - Forms: ED Satisfaction Letter Time of Disposition: 20:34 General Adult HPI - General Chief complaint: ED Chest Pain Stated complaint: Pacemaker going off Time Seen by Provider: 11/25/16 17:30 Source: patient, EMS Mode of arrival: EMS Limitations: no limitations Nursing Notes Reviewed: Yes Vital Signs Reviewed: Yes - History of Present Illness HPI Narrative: Patient presents to emergency room after having his defibrillator fired multiple times. Patient said this happened 32 times in the past now. Patient has been drinking and was not an argument with another person when this event started. Patient denies any direct trauma injuries or other symptoms prior to the events. Patient is otherwise comfortable and stable on presentation. EMS had an uneventful transport. EKG was transmitted at the time of evaluation with no acute specific pathology noted Onset (ago): Just ENGINE LATHE SET UP OPERATOR Location: chest Radiation: non-radiation Pain Severity: mild Pain Scale: 0 Consistency: constant Improves with: nothing Worsens with: nothing Associated symptoms: Reports: denies other symptoms Treatments Prior to Arrival: none - Related Data Home Medications Medication Instructions Recorded Confirmed Furosemide [Lasix] 40 - 60 mg PO DAILY PRN 10/13/16 10/13/16 Previous Rx's Medication Instructions Recorded Amiodarone [Cordarone] 400 mg PO BID #60 tablet 10/15/16 Aspirin 81 mg PO DAILY #30 tab.chew 10/15/16 Atorvastatin [Lipitor] 40 mg PO HS #30 tablet 10/15/16 Metoprolol [Lopressor] 12.5 mg PO BID #60 tablet 10/15/16 Furosemide [Lasix] 20 mg PO BID #10 tablet 11/10/16 Allergies Allergy/AdvReac Type Severity Reaction Status Date / Time No Known Allergies Allergy Unverified 11/10/16 10:13 All systems ED: reviewed and negative except as stated. Constitutional: Denies: fever Cardiovascular: Denies: chest pain, palpitations, dyspnea on exertion, orthopnea , edema Respiratory: Denies: cough, dyspnea Gastrointestinal: Denies: abdominal pain Musculoskeletal: Denies: back pain, neck pain Neurological: Denies: headache Psychiatric: Denies: anxiety Allergic/Immunologic: Denies: facial swelling Past Medical History - Past Medical History Attestation: Yes The following information was validated with the patient. Source: patient Medical history: Reports: atrial fibrillation, CHF, COPD, coronary artery disease, hyperlipidemia, hypertension, myocardial infarction, other Surgical history: Reports: angioplasty/stent, herniorrhaphy Psychiatric history: Reports: anxiety - Social History Smoking Status: Current every day smoker Smokeless Tobacco Status: No Alcohol use: Reports: occasionally, recent Drug use: Reports: none Physical Exam - General Limitations: no limitations General appearance: alert, in no apparent distress - Neck Neck exam: Present: normal inspection, full ROM, trachea midline - Chest Chest inspection: Present: normal inspection, symmetric chest wall rise, tenderness - Respiratory Respiratory exam: Present: normal lung sounds bilaterally - Cardiovascular Cardiovascular exam: Present: regular rate, tachycardia, normal heart sounds - Abdominal Exam Abdominal exam: Present: soft, Non-Tender, normal bowel sounds. Absent: tenderness, distention, guarding, rebound, rigidity - Extremities Exam Extremities exam: Present: normal inspection - Back Exam Back exam: Present: normal inspection, full ROM - Neurological Exam Neurological exam: Present: alert, oriented X3, CN II-XII intact, normal gait - Psychiatric Psychiatric exam: Present: agitated, anxious - Skin Skin exam: Present: warm, dry, intact, normal color Course Course Narrative: Patient seen and examined the time of arrival by EMS. See history of present illness. 55-year-old male presents to emergency room with complaint of his defibrillator firing multiple times. Patient said this happened 32 times in the past. He denies any changes in medications trauma or injuries. Denies any other symptoms or complaints prior to the events here today. Of note, patient is intoxicated and was in an argument with another person just prior to the events. Patient is currently intoxicated. Electrolytes are concerned at this point as well secondary to the presentation. Patient had fluids given at this time nausea medication anxiety medication as needed. Immediate EKG was collected on presentation patient sinus tachycardia with no acute signs of myocardial infarction this time. The pacemaker was interrogated as well in presentation. We will get this information as well as check cardiac markers electrolytes chest x-ray and basic laboratory workup or treatment course. Urinalysis and urine drug screen ordered at this time to secondary to concern for polypharmacy involvement at this point. Patient is otherwise stable we will continue to monitor his treatment course is completed.. Pacer pads were placed and the patient as well as protective procedure - Reevaluation(s) Reevaluation #1: [employer] interpretation: Interpretation of the patient had 6 events with 8 shocks delivered. Shocks were appropriate at that time patient had 6 events of ventricular fibrillation. This is a normal process for him. He is followed by Dr. Rico and Dr. Nation at this facility. Because of the multitude of events as well as intoxication presentation patient will most likely need admission to the hospital. We will continue to monitor him as his treatment course is completed. Page placed onto the on-call tubing machine operator at this time Time: 18:34 Reevaluation #2: Patient set accepted by the hospitalist at this time for evaluation and management. No other concerns or issues at this time. Patient be observed in the hospital setting until cardiology evaluations completed. Moderate in the emergency room to the admission process is completed Time: 20:34 - Consultations Consultation #1: Discussed with dr. Siegel, we reviewed the presentation symptoms medical history as well as medication list. Patient is currently on metoprolol, lisinopril, amiodarone. Recommended restarting all home meds and then admission for observation. No other concerns or issues at this time. Patient will be informed of our recommendation for admission at this point. Time: 19:26 Vital Signs Temperature 0 F L 11/25/16 17:20 Pulse Rate 117 11/25/16 17:20 Respiratory Rate 22 11/25/16 17:20 Blood Pressure 126/97 11/25/16 17:20 O2 Sat by Pulse Oximetry 95 11/25/16 17:20 Temperature 0 F L 11/25/16 17:20 Pulse Rate 105 11/25/16 18:21 Respiratory Rate 20 11/25/16 18:21 Blood Pressure 108/62 11/25/16 18:21 O2 Sat by Pulse Oximetry 95 11/25/16 18:21 Oxygen Delivery Oxygen Delivery Room Air Medical Decision Making - MDM Narrative Medical decision making narrative: Defibrillator fired, V. fib - Medical Records Medical records reviewed: Yes I reviewed the patient's medical records. - Lab Data Lab results reviewed: Yes I reviewed the patient's lab results. Result diagrams: 11/25/16 17:35 11/25/16 17:35 Lab Results 11/25/16 11/25/16 11/25/16 Range/Units 17:35 17:35 17:35 WBC 6.7 (4.3-11.1) K/mcL RBC 5.07 (4.19-5.50) M/mcL Hgb 15.6 (12.9-16.9) g/dL Hct 45.2 (37.5-50.1) % MCV 89.2 (83.0-100.0) fL MCH 30.8 (28.0-33.3) pg MCHC 34.5 (31.6-35.5) g/dL RDW 12.4 (11.5-14.5) % Plt Count 210 (140-400) K/mcL MPV 9.6 (9.4-12.4) fL Immature Gran % 0.4 (0-4) % Seg Neutrophils % 48.5 % Lymphocytes % 34.1 % Monocytes % 9.7 % Eosinophils % 6.4 % Basophils % 0.9 % Neutrophils # 3.2 (1.6-8.9) K/mcL Lymphocytes # 2.3 (0.6-4.6) K/mcL Monocytes # 0.7 (0.0-1.3) K/mcL Eosinophils # 0.4 (0.0-0.6) K/mcL Basophils # 0.1 (0.0-0.2) K/mcL PT 10.9 (9.4-12.1) Seconds INR 1.0 APTT 28.8 (26.0-36.0) Seconds Sodium (136-145) mEq/L Potassium (3.5-4.5) mEq/L Chloride (98-109) mEq/L Carbon Dioxide (19-29) mEq/L BUN (8-26) mg/dL Creatinine (0.72-1.25) mg/dL Est GFR ( Amer) (> 60) Est GFR (Non-Af Amer) (> 60) BUN/Creatinine Ratio (6-26) Glucose (70-99) mg/dL Calculated Osmolality (280-300) Calcium (8.6-10.8) mg/dL Magnesium (1.6-2.6) mg/dL Troponin I (0-0.03) ng/mL B-Natriuretic Peptide 123 H (0-100) pg/mL Urine Opiates Screen (Bhqilc=432) ng/mL Ur Barbiturates Screen (Pgqjin=578) ng/mL Ur Phencyclidine Scrn (Cutoff=25) ng/mL Ur Amphetamines Screen (Jtudnk=2270) ng/mL U Benzodiazepines Scrn (Enskvs=752) ng/mL Urine Cocaine Screen (Cutoff= 300) ng/mL U Marijuana (THC) Screen (Cutoff = 50) ng/mL 11/25/16 11/25/16 11/25/16 Range/Units 17:35 17:35 18:20 WBC (4.3-11.1) K/mcL RBC (4.19-5.50) M/mcL Hgb (12.9-16.9) g/dL Hct (37.5-50.1) % MCV (83.0-100.0) fL MCH (28.0-33.3) pg MCHC (31.6-35.5) g/dL RDW (11.5-14.5) % Plt Count (140-400) K/mcL MPV (9.4-12.4) fL Immature Gran % (0-4) % Seg Neutrophils % % Lymphocytes % % Monocytes % % Eosinophils % % Basophils % % Neutrophils # (1.6-8.9) K/mcL Lymphocytes # (0.6-4.6) K/mcL Monocytes # (0.0-1.3) K/mcL Eosinophils # (0.0-0.6) K/mcL Basophils # (0.0-0.2) K/mcL PT (9.4-12.1) Seconds INR APTT (26.0-36.0) Seconds Sodium 140 (136-145) mEq/L Potassium 3.6 (3.5-4.5) mEq/L Chloride 107 (98-109) mEq/L Carbon Dioxide 20 (19-29) mEq/L BUN 18 (8-26) mg/dL Creatinine 1.47 H (0.72-1.25) mg/dL Est GFR ( Amer) > 60 (> 60) Est GFR (Non-Af Amer) 50 L (> 60) BUN/Creatinine Ratio 12 (6-26) Glucose 116 H (70-99) mg/dL Calculated Osmolality 293 (280-300) Calcium 8.8 (8.6-10.8) mg/dL Magnesium 2.2 (1.6-2.6) mg/dL Troponin I 0.03 (0-0.03) ng/mL B-Natriuretic Peptide (0-100) pg/mL Urine Opiates Screen Negative (Zxzlyr=019) ng/mL Ur Barbiturates Screen Negative (Uguceq=132) ng/mL Ur Phencyclidine Scrn Negative (Cutoff=25) ng/mL Ur Amphetamines Screen Negative (Qdjcxv=0165) ng/mL U Benzodiazepines Scrn Negative (Rjzswk=506) ng/mL Urine Cocaine Screen Negative (Cutoff= 300) ng/mL U Marijuana (THC) Screen Negative (Cutoff = 50) ng/mL - Radiology Data Radiology results reviewed: Yes I reviewed the patient's radiology results. Chest x-ray is stable with no signs of pulmonary congestion at this time - EKG Data EKG #1 EKG attestation: Yes I reviewed and interpreted this EKG. EKG shows normal: sinus rhythm, axis, intervals, QRS complexes, ST-T waves Rate: tachycardia Rhythm: NSR Cutler/QRS: normal Voltage: increased voltage throughout When compared to previous EKG there are: no significant changes Interpretation: no acute changes, unchanged when compared to prior tracing (date ) (11/10/16) Critical Care Time Critical Care Time: Yes Total Critical Care Time: 35 Attestation: Critical care performed: Time is exclusive of separately billable procedures. Time includes: direct patient care, patient reassessment, coordination of patient care, interpretation of data (laboratory data, radiology data, and respiratory data), review of patient's medical records, medical consultation and documentation of patient care. Procedures included in critical care time: Cardiac evaluation and treatment with medical stabilization Procedures excluded from critical care time:
[2016-11-25 18:36] LABS: Amphetamine Screen,Urine Negative ng/mL (Cutoff=1000); Barbiturate Screen,Urine Negative ng/mL (Cutoff=200); Benzodiazepines Screen,Urine Negative ng/mL (Cutoff=200); Cannabinoid Screen,Urine Negative ng/mL (Cutoff = 50); Cocaine Screen,Urine Negative ng/mL (Cutoff= 300); Opiate Screen,Urine Negative ng/mL (Cutoff=300); Phencyclidine Screen,Urine Negative ng/mL (Cutoff=25)
[2016-11-25] MEDS ORDERED: *HR* Enoxaparin 80 MG/0.8 ML SYRINGE SQ ONE (22:18)
--- NOTE | 2016-11-25 22:22 | Internal Med History&Physical ---
Date of Encounter: 11/25/16 Time of Encounter: 22:19 Assessment and Plan (1) Defibrillator discharge Current visit: No Status: Acute Due to medication noncompliance in a patient with ischemic cardiomyopathy and ejection fraction of 10%. ICD interrogation shows V-fib/VTach occasionally sustained. I was restart the patient metoprolol amiodarone. 1st dose will be given now. He is known to have coronary disease with chronic total LAD occlusion will give on those Lovenox. Serial cardiac markers. (2) CAD (coronary artery disease) Current visit: No Status: Chronic Patient to follow normal electrocardiogram shows no ST segment shifts. No Q TC prolongation. Serial cardiac markers Qualifiers: Coronary Disease-Associated Artery/Lesion type: [place] artery [place] vs. transplanted heart: [place] heart Associated angina: without angina Qualified Code(s): I25.10 - Atherosclerotic heart disease of [place] coronary artery without angina pectoris (3) Ischemic cardiomyopathy Current visit: No Status: Chronic Clinically compensated. (4) Chronic kidney disease Current visit: No Status: Chronic CKD stage 3 stable. Qualifiers: Chronic kidney disease stage: stage 3 (moderate) Qualified Code(s): N18.3 - Chronic kidney disease, stage 3 (moderate) Internal Medicine - H&P: HPI Chief complaint: ICD firing History of present illness: Mr. Dunn is a 55 year old male patient with history of coronary artery disease with the recent angiogram to month ago showing a single vessel disease chronic total occlusion of LAD with collaterals, ischemic cardiomyopathy with ejection fraction of 10%, recently hospitalized to month ago because of ICD firing due to medication noncompliance presented emergency room today again because of ICD firing. Patient had 6 ICD firings today. Interrogation of the ICD shows that these firings were for V fib/VTach occasionally sustained. He denies taking his beta maci amiodarone. He has some chest discomfort related to the ICD firing. He drinks alcohol occasionally approximately once a week. Past Med Surg Social Fam HX - Past Medical History Medical history: atrial fibrillation, CHF, COPD, coronary artery disease, hyperlipidemia, hypertension, myocardial infarction, other Psychiatric history: anxiety - Past Surgical History Surgical History: angioplasty/stent, herniorrhaphy - Social History Smoking Status: Current every day smoker Smokeless Tobacco Status: No Alcohol use: occasionally, recent Drug use: none - Family History Mother Adopted: Yes Internal Medicine - H&P: Meds Furosemide [Lasix] 40 - 60 mg PO DAILY PRN 10/13/16 [History] Amiodarone [Cordarone] 400 mg PO BID #60 tablet 10/15/16 [Rx] Aspirin 81 mg PO DAILY #30 tab.chew 10/15/16 [Rx] Atorvastatin [Lipitor] 40 mg PO HS #30 tablet 10/15/16 [Rx] Metoprolol [Lopressor] 12.5 mg PO BID #60 tablet 10/15/16 [Rx] Furosemide [Lasix] 20 mg PO BID #10 tablet 11/10/16 [Rx] Allergies No Known Allergies Allergy (Unverified 11/10/16 10:13) All Systems PM: A 10-system review of systems was performed and is negative for pertinent findings except as documented above in the HPI. Review of systems: 10 point review of systems is negative except for HPI - Constitutional Vitals: Temp Pulse Resp BP Pulse Ox 0 F L 85 20 92/70 97 11/25/16 17:20 11/25/16 22:05 11/25/16 22:05 11/25/16 20:35 11/25/16 22:05 Exam: Gen.: patient is alert oriented times 3 cardiac: normal S1 S2 no additional sounds or murmurs chest: no active wheezing or bronchial breathing abdomen soft nontender nondistended normal bowel sounds lower extremity no swelling. Neuro: no new focal deficits Internal Med - H&P Results - Labs CBC & Chem 7: 11/25/16 17:35 11/25/16 17:35
[2016-11-25 22:46] LABS: Magnesium 2.2 mg/dL (1.6-2.6); Potassium 3.9 mEq/L (3.5-4.5)
[2016-11-26] MEDS: Aspirin 81 MG TAB.CHEW PO SCH ×2 (00:22→07:31)
[2016-11-26] MEDS: *HR* Amiodarone 200 MG TABLET PO SCH ×2 (00:23→07:31)
[2016-11-26 01:23] LABS: Basophils % 0.7 %; Eosinophils # 0.3 K/mcL (0.0-0.6); Eosinophils % 5.8 %; Hematocrit 41.3 % (37.5-50.1); Hemoglobin 14.3 g/dL (12.9-16.9); Immature Granulocytes % 0.7 % (0-4); Lymphocytes # 1.7 K/mcL (0.6-4.6); Lymphocytes % 29.7 %; Mean Corpuscular HGB Conc 34.6 g/dL (31.6-35.5); Mean Corpuscular Hemoglobin 31.3 pg (28.0-33.3); Mean Corpuscular Volume 90.4 fL (83.0-100.0); Mean Platelet Volume 9.6 fL (9.4-12.4); Monocytes # 0.5 K/mcL (0.0-1.3); Monocytes % 9.2 %; Platelet Count 184 K/mcL (140-400); Red Blood Count 4.57 M/mcL (4.19-5.50); Red Cell Distribution Width 12.3 % (11.5-14.5); Segmented Neutrophils % 53.9 %
[2016-11-26 01:39] LABS: BUN/Creatinine Ratio 13 (6-26); Blood Urea Nitrogen 15 mg/dL (8-26); Calcium 8.2 mg/dL (8.6-10.8); Carbon Dioxide 22 mEq/L (19-29); Chloride 109 mEq/L (98-109); Creatine Kinase 170 Units/L (30-200); Glucose 115 mg/dL (70-99); Magnesium 2.3 mg/dL (1.6-2.6); Osmolality,Calculated 294 (280-300); Potassium 3.4 mEq/L (3.5-4.5); Sodium 141 mEq/L (136-145); eGFR For African Americans > 60 (> 60); eGFR For Non-African Americans > 60 (> 60)
[2016-11-26] MEDS ORDERED: Potassium Chloride 40 MEQ, Lidocaine 1% 2 ML in D5% in Water 500 ML IVPB ONE (07:26)
--- NOTE | 2016-11-26 09:00 | Internal Med Progress Note ---
Date of Encounter: 11/26/16 Time of Encounter: 08:58 - Assessment and plan (1) Ventricular fibrillation Current Visit: Yes Status: Acute (2) Defibrillator discharge Current Visit: Yes Status: Acute (3) CAD (coronary artery disease) Current Visit: No Status: Chronic Qualifiers: Coronary Disease-Associated Artery/Lesion type: [place] artery [place] vs. transplanted heart: [place] heart Associated angina: without angina Qualified Code(s): I25.10 - Atherosclerotic heart disease of [place] coronary artery without angina pectoris (4) Hypertension Current Visit: No Status: Chronic Qualifiers: Hypertension type: essential hypertension Qualified Code(s): I10 - Essential (primary) hypertension (5) Ischemic cardiomyopathy Current Visit: No Status: Chronic - Subjective Interval history: Mr. Chaparro Dunn is a 55-year-old noncompliant patient who has come in due to mild chest discomfort after AICD fired. Apparently he is not taking his medication. He has ischemic cardiomyopathy with EF of only 10% and single vessel disease. He has been started on the maci and amiodarone aspirin during this admission and I will add low-dose lisinopril. He did have detailed cardiac evaluation not too long ago. Cardiology is consulted and one question we would need them to answer illness if he should be on long-term anticoagulation. Night hospitalization this has already started patient on therapeutic dose of Lovenox. However patient noncompliance is a relative contraindication. Surprisingly he is not in CHF and his cardiac enzymes are negative. Potassium was low which has been supplemented this morning and will be rechecked tomorrow.. - Constitutional Vitals: Temp Pulse Resp BP Pulse Ox 98.1 F 85 18 128/97 96 11/26/16 07:06 11/26/16 07:34 11/26/16 07:06 11/26/16 07:06 11/26/16 07:06 - Head Head exam: Present: atraumatic, normocephalic - Eye Eye exam: Present: PERRL, conjuntiva pink, sclera anicteric Pupils: Present: PERRL - Neck Neck exam general surgery: Present: supple, trachea midline. Absent: lymphadenopathy - Respiratory Respiratory exam: Present: CTAB. Absent: accessory muscle use, rales, rhonchi, wheezes - Cardiovascular Cardiovascular exam: Present: RRR, +S1, +S2. Absent: diastolic murmur, gallop, rubs, systolic murmur - GI/Abdominal GI/Abdominal exam: Present: normal bowel sounds, soft, no peritoneal signs. Absent: distended, tenderness - Extremities Exam Extremities exam: Present: warm, radial pulses palpable and symetrical. Absent : calf tenderness, cyanotic, pedal edema - Neurological Exam Neurological exam: Present: CN II-XII intact, oriented X3, no focal deficits. Absent: pronater drift, facial droop, speech deficit - Skin Skin exam: Present: dry, intact Internal Medicine: Result - Labs CBC & Chem 7: 11/26/16 00:59 11/26/16 00:59 Labs: Short CBC 11/26/16 Range/Units 00:59 WBC 5.6 (4.3-11.1) K/mcL Hgb 14.3 (12.9-16.9) g/dL Hct 41.3 (37.5-50.1) % Plt Count 184 (140-400) K/mcL Neutrophils # 3.0 (1.6-8.9) K/mcL BMP 11/26/16 00:59 Sodium 141 Potassium 3.4 L Chloride 109 Carbon Dioxide 22 BUN 15 Creatinine 1.14 Glucose 115 H Calcium 8.2 L Cardiac Enzymes 11/26/16 Range/Units 00:59 Troponin I 0.03 (0-0.03) ng/mL - ABG Interpretation ABG results: PT/INR, D-dimer PT 10.9 Seconds (9.4-12.1) 11/25/16 17:35 Consult Discharge Plan - Plan Referrals: NO,PCP [Primary Care Provider] -
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
[2016-11-26] MEDS ORDERED: Amiodarone Premix 360 MG/200 ML BAG IVC ONE (10:33)
[2016-11-26] MEDS ORDERED: Amiodarone Premix 150 MG/100 ML BAG IVPB ONE (10:33)
[2016-11-26] MEDS: Amiodarone Premix 360 MG/200 ML BAG IVC SCH (17:22)
[2016-11-27 05:06] LABS: Alanine Aminotransferase 18 Units/L (0-55); Albumin 3.3 g/dL (3.5-5.0); Albumin/Globulin Ratio 1.1 (1.1-2.2); Alkaline Phosphatase 56 Units/L (38-126); Aspartate Amino Transferase 20 Units/L (5-34); BUN/Creatinine Ratio 10 (6-26); Bilirubin,Total 0.7 mg/dL (0.2-1.2); Blood Urea Nitrogen 13 mg/dL (8-26); Calcium 8.8 mg/dL (8.6-10.8); Carbon Dioxide 27 mEq/L (19-29); Chloride 107 mEq/L (98-109); Globulin 3.1 g/dL (2.4-3.5); Glucose 98 mg/dL (70-99); Osmolality,Calculated 288 (280-300); Sodium 139 mEq/L (136-145); Total Protein 6.4 g/dL (6.0-8.3); eGFR For African Americans > 60 (> 60); eGFR For Non-African Americans 57 (> 60)
[2016-11-27 05:13] LABS: Potassium 4.8 mEq/L (3.5-4.5)
[2016-11-27] MEDS: Amiodarone Premix 360 MG/200 ML BAG IVC SCH ×2 (05:49→17:59)
[2016-11-27] MEDS: Metoprolol XL (24 HR) Succ 25 MG TAB.ER.24H PO SCH (07:39)
[2016-11-27] MEDS: Aspirin 81 MG TAB.CHEW PO SCH (07:39)
[2016-11-27] MEDS ORDERED: ALPRAZolam 0.25 MG TABLET PO PRN (09:44)
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
--- NOTE | 2016-11-27 12:07 | Electrocardiograph Report ---
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
--- NOTE | 2016-11-27 18:32 | Internal Med Progress Note ---
Date of Encounter: 11/27/16 Time of Encounter: 18:30 - Assessment and plan (1) Ventricular fibrillation Current Visit: Yes Status: Acute (2) Defibrillator discharge Current Visit: Yes Status: Acute (3) CAD (coronary artery disease) Current Visit: No Status: Chronic Qualifiers: Coronary Disease-Associated Artery/Lesion type: [place] artery [place] vs. transplanted heart: [place] heart Associated angina: without angina Qualified Code(s): I25.10 - Atherosclerotic heart disease of [place] coronary artery without angina pectoris (4) Hypertension Current Visit: No Status: Chronic Qualifiers: Hypertension type: essential hypertension Qualified Code(s): I10 - Essential (primary) hypertension (5) Ischemic cardiomyopathy Current Visit: No Status: Chronic - Subjective Interval history: Mr. Chaparro Dunn is a 55-year-old noncompliant patient who has come in due to mild chest discomfort after AICD fired. Apparently he is not taking his medication. He has ischemic cardiomyopathy with EF of only 10% and single vessel disease. He has been started on the maci and amiodarone aspirin during this admission and I will add low-dose lisinopril. He did have detailed cardiac evaluation not too long ago. Cardiology is consulted and one question we would need them to answer illness if he should be on long-term anticoagulation. Night hospitalization this has already started patient on therapeutic dose of Lovenox. However patient noncompliance is a relative contraindication. Surprisingly he is not in CHF and his cardiac enzymes are negative. Potassium was low which has been supplemented this morning and will be rechecked tomorrow.. 11/27 discussed with cardiology. They are loading him with the amiodarone today therefore he will leave tomorrow with amiodarone 400 by mouth twice a day for 30 days and then 200 daily. He is asymptomatic doing very well but his blood pressure is running on the borderline as he started lisinopril 2.5 yesterday. We will watch him closely. Patient wants his Lasix to be restarted and I think considering his low EF is reasonable especially because he is developing or pedal edema. We will readdress his medication before discharge tomorrow but ideally he should be on aspirin and beta maci lisinopril Lasix and amiodarone. He is considered not a candidate for anticoagulation due to his noncompliance. - Constitutional Vitals: Temp Pulse Resp BP Pulse Ox 97.9 F 62 16 91/66 97 11/27/16 16:21 11/27/16 16:21 11/27/16 16:21 11/27/16 16:21 11/27/16 16:21 - Head Head exam: Present: atraumatic, normocephalic - Eye Eye exam: Present: PERRL, conjuntiva pink, sclera anicteric Pupils: Present: PERRL - Neck Neck exam general surgery: Present: supple, trachea midline. Absent: lymphadenopathy - Respiratory Respiratory exam: Present: CTAB. Absent: accessory muscle use, rales, rhonchi, wheezes - Cardiovascular Cardiovascular exam: Present: RRR, +S1, +S2. Absent: diastolic murmur, gallop, rubs, systolic murmur - GI/Abdominal GI/Abdominal exam: Present: normal bowel sounds, soft, no peritoneal signs. Absent: distended, tenderness - Extremities Exam Extremities exam: Present: pedal edema, warm, radial pulses palpable and symetrical. Absent: calf tenderness, cyanotic - Neurological Exam Neurological exam: Present: CN II-XII intact, oriented X3, no focal deficits. Absent: pronater drift, facial droop, speech deficit - Skin Skin exam: Present: dry, intact Internal Medicine: Result - Labs CBC & Chem 7: 11/26/16 00:59 11/27/16 04:19 Labs: BMP 11/27/16 04:19 Sodium 139 Potassium 4.8 H D Chloride 107 Carbon Dioxide 27 BUN 13 Creatinine 1.30 H Glucose 98 Calcium 8.8 Liver Function 11/27/16 Range/Units 04:19 Total Bilirubin 0.7 (0.2-1.2) mg/dL AST 20 (5-34) Units/L ALT 18 (0-55) Units/L Alkaline Phosphatase 56 (38-126) Units/L Albumin 3.3 L (3.5-5.0) g/dL - ABG Interpretation ABG results: PT/INR, D-dimer PT 10.9 Seconds (9.4-12.1) 11/25/16 17:35 Consult Discharge Plan - Plan Referrals: Magno Campo MD [Partnered Physician] - 12/07/16 3:00 pm (PLEASE TAKE THE NEW PATIENT PACKET FILLED OUT TO YOUR APPOINTMENT. PLEASE TAKE YOUR PICTURE ID, INSURANCE CARDS, ALL MEDICATIONS IN THE BOTTLES. TAKE YOUR DISCHARGE INSTRUCTION WITH YOUR. SHOW UP 15 MINS EARLY. IF YOU ARE UNABLE TO MAKE YOUR APPOINTMENT PLEASE CALL [phone] AND CANCEL WITHIN 24 HOURS OF YOUR APPOINTMENT.) Molina Nation MD [Partnered Physician] - 12/15/16 11:30 am
[2016-11-27] MEDS: *HR* Amiodarone 200 MG TABLET PO SCH (20:25)
[2016-11-28 04:07] VITALS: BP 105/78
[2016-11-28 05:14] LABS: Alanine Aminotransferase 30 Units/L (0-55); Albumin 3.3 g/dL (3.5-5.0); Albumin/Globulin Ratio 1.1 (1.1-2.2); Alkaline Phosphatase 57 Units/L (38-126); Aspartate Amino Transferase 30 Units/L (5-34); BUN/Creatinine Ratio 14 (6-26); Bilirubin,Total 0.8 mg/dL (0.2-1.2); Blood Urea Nitrogen 18 mg/dL (8-26); Calcium 8.8 mg/dL (8.6-10.8); Carbon Dioxide 25 mEq/L (19-29); Chloride 109 mEq/L (98-109); Glucose 96 mg/dL (70-99); Osmolality,Calculated 290 (280-300); Potassium 4.4 mEq/L (3.5-4.5); Sodium 139 mEq/L (136-145); Total Protein 6.3 g/dL (6.0-8.3); eGFR For African Americans > 60 (> 60); eGFR For Non-African Americans 58 (> 60)
[2016-11-28] MEDS: Metoprolol XL (24 HR) Succ 25 MG TAB.ER.24H PO SCH (07:23)
[2016-11-28] MEDS: Aspirin 81 MG TAB.CHEW PO SCH (07:24)
[2016-11-28] MEDS: *HR* Amiodarone 200 MG TABLET PO SCH (07:24)
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
[2016-11-29 19:15] LABS: CK-BB (CK isoenzymes) 0 % (0-0); CK-MB (CK isoenzymes) 0 % (0-4); CK-MM (CK-isoenzymes) 100 % (96-100)
[2016-11-29 19:15] LABS: CK-BB (CK isoenzymes) 0 % (0-0); CK-MB (CK isoenzymes) 0 % (0-4); CK-MM (CK-isoenzymes) 100 % (96-100)
[2016-12-01 08:03] LABS: CK Total (Ck Isoenzymes) 165 U/L (20-200)
[2016-12-01 08:03] LABS: CK Total (Ck Isoenzymes) 186 U/L (20-200)
== END 2016-11-28 10:41 | disposition home or self-care (01) | DRG 309 ==
LOC: EMEROO 17:18 → 2NNU 17:18
PROVIDERS: ADMIT Hospitalist; ATTEND Internal Medicine

== ENCOUNTER 2017-09-28 16:33 | Observation (INO) ==
--- NOTE | 2017-09-28 16:40 | Emergency Department Note ---
Disposition Clinical Impression: HAKEEM (acute kidney injury) Chest pain Qualifiers: Chest pain type: unspecified Qualified Code(s): R07.9 - Chest pain, unspecified Disposition: Admitted As Inpatient Condition: Good Referrals: Magno Campo MD [Primary Care Provider] - Forms: ED Satisfaction Letter Time of Disposition: 18:34 Chest Pain HPI - General Chief Complaint: ED Chest Pain Stated Complaint: chest pain Time Seen by Provider: 09/28/17 16:40 Source: patient Mode of arrival: ambulatory Limitations: no limitations Vital Signs Reviewed: Yes Nursing Notes Reviewed: Yes - History of Present Illness HPI Narrative: Patient is a 56-year-old male with history of hypertension, hyperlipidemia, dilated cardiomyopathy, CHF, A. fib and currently on amiodarone, pacemaker defibrillator placed, self reported cardiac vessel occlusion that was unable to be stented, currently in cardiac rehabilitation. He presents today due to chest pain. He states that over the past week, he has had intermittent right- sided chest pressure that lasts for 10-15 minutes at a time. Occurs both at rest and with exertion, exertion does not make the pain worse. Patient also has associated nausea. Currently denies any shortness of breath, fevers, diarrhea, abdominal pain. He did take baby aspirin today, is not on any other blood thinners. He did not take any nitroglycerin prior to arrival. Severity scale (1-10): 4 - Related Data Home Medications Medication Instructions Recorded Confirmed Furosemide [Lasix] 40 mg PO DAILY PRN 10/13/16 08/02/17 Amiodarone [Cordarone] 200 mg PO BID 03/14/17 08/02/17 Levothyroxine [Synthroid] 88 mcg PO 0630 03/14/17 08/02/17 Sacubitril/Valsartan [Entresto 49 1 tab PO DAILY 03/14/17 08/02/17 mg-51 mg Tablet] Atorvastatin [Lipitor] 40 mg PO HS 08/02/17 08/02/17 Lisinopril 2.5 mg PO DAILY 08/02/17 08/02/17 Spironolactone [Aldactone] 25 mg PO DAILY 08/02/17 08/02/17 Previous Rx's Medication Instructions Recorded Aspirin 81 mg PO DAILY #30 tab.chew 11/28/16 Atorvastatin [Lipitor] 40 mg PO HS #30 tablet 11/28/16 Metoprolol XL (24 HR) Succ [Toprol 25 mg PO DAILY #30 tab.er.24h 11/28/16 Xl] Allergies Allergy/AdvReac Type Severity Reaction Status Date / Time No Known Allergies Allergy Verified 09/28/17 16:39 All systems ED: reviewed and negative except as stated. Constitutional: Denies: fever Cardiovascular: Reports: chest pain Respiratory: Denies: dyspnea Gastrointestinal: Reports: nausea. Denies: abdominal pain, vomiting, diarrhea, constipation Genitourinary: Denies: urgency, dysuria Integumentary: Denies: rash Neurological: Denies: headache, weakness, numbness, paresthesias Chest Pain PMH - Past Medical History Medical history: Reports: atrial fibrillation, cardiomyopathy, CHF, hyperlipidemia, hypertension, myocardial infarction, renal disease, thyroid disease, other Surgical history: Reports: herniorrhaphy Psychiatric history: Reports: anxiety - Social History Smoking Status: Former smoker Alcohol use: Reports: none Drug use: Reports: none Physical Exam - General General appearance: alert, in no apparent distress - Head Head exam: atraumatic, normocephalic, normal inspection - Eye Eye exam: Present: normal appearance, PERRL, EOMI - ENT ENT exam: normal exam, normal oropharynx, mucous membranes moist - Neck Neck exam: Present: normal inspection, full ROM, trachea midline - Chest Chest inspection: Present: normal inspection, symmetric chest wall rise - Respiratory Respiratory exam: Present: normal lung sounds bilaterally - Cardiovascular Cardiovascular exam: Present: regular rate, normal rhythm, normal heart sounds - Abdominal Exam Abdominal exam: Present: soft, Non-Tender. Absent: tenderness, distention, guarding, rebound, rigidity - Extremities Exam Extremities exam: Present: normal inspection, full ROM. Absent: tenderness, pedal edema - Neurological Exam Neurological exam: Present: alert, oriented X3 - Psychiatric Psychiatric exam: Present: normal affect, normal mood - Skin Skin exam: Present: warm, dry, intact, other (Flushing of face which he states is chronic) Course Course Narrative: Vitals within normal limits, currently chest pain rated 0 out of 10. Will give patient additional aspirin for appropriate aspirin 325 mg dosing. We will perform an EKG, chest x-ray, troponin. Due to extensive cardiac history, patient will need to be observed and have trending troponins drawn. 18:21 patient remains chest pain-free. Basic workup shows negative troponin, negative chest x-ray, EKG shows no acute ST changes. Patient has heart score 4 , significant cardiac history. We will admit for further trending troponins. Chest X-Ray 09/28/17 16:50 IMPRESSION: No acute cardiopulmonary abnormality. D/ / Ruperto Barbosa / Ruperto Barbosa Interpreting Provider: Ruperto Barbosa Vital Signs Temperature 97.6 F 09/28/17 16:37 Pulse Rate 72 09/28/17 16:37 Respiratory Rate 16 09/28/17 16:37 Blood Pressure 121/82 09/28/17 16:37 O2 Sat by Pulse Oximetry 96 09/28/17 16:37 Temperature 97.6 F 09/28/17 16:37 Pulse Rate 66 09/28/17 18:11 Respiratory Rate 16 09/28/17 18:11 Blood Pressure 108/84 09/28/17 18:11 O2 Sat by Pulse Oximetry 95 09/28/17 18:11 Oxygen Delivery Oxygen Delivery Room Air Chest Pain - MDM Narrative Medical decision making narrative: Vitals within normal limits, currently chest pain rated 0 out of 10. Will give patient additional aspirin for appropriate aspirin 325 mg dosing. We will perform an EKG, chest x-ray, troponin. Due to extensive cardiac history, patient will need to be observed and have trending troponins drawn. 18:21 patient remains chest pain-free. Basic workup shows negative troponin, negative chest x-ray, EKG shows no acute ST changes. Patient has heart score 4 , significant cardiac history. We will admit for further trending troponins. - Medical Records Medical records reviewed: Yes I reviewed the patient's medical records. - Lab Data Lab results reviewed: Yes I reviewed the patient's lab results. Result diagrams: 09/28/17 17:00 09/28/17 17:00 Lab Results 09/28/17 09/28/17 09/28/17 Range/Units 16:50 17:00 17:00 WBC 6.6 (4.3-11.1) K/mcL RBC 4.61 (4.19-5.50) M/mcL Hgb 15.4 (12.9-16.9) g/dL Hct 42.1 (37.5-50.1) % MCV 91.3 (83.0-100.0) fL MCH 33.4 H (28.0-33.3) pg MCHC 36.6 H (31.6-35.5) g/dL RDW 13.1 (11.5-14.5) % Plt Count 230 (140-400) K/mcL MPV 9.6 (9.4-12.4) fL Immature Gran % 0.9 (0-4) % Seg Neutrophils % 68.1 % Lymphocytes % 18.9 % Monocytes % 9.1 % Eosinophils % 2.1 % Basophils % 0.9 % Neutrophils # 4.5 (1.6-8.9) K/mcL Lymphocytes # 1.2 (0.6-4.6) K/mcL Monocytes # 0.6 (0.0-1.3) K/mcL Eosinophils # 0.1 (0.0-0.6) K/mcL Basophils # 0.1 (0.0-0.2) K/mcL PT 10.2 (9.4-12.1) Seconds INR 1.0 APTT 27.5 (26.0-36.0) Seconds Sodium 138 (136-145) mEq/L Potassium 3.5 (3.5-5.1) mEq/L Chloride 102 (98-107) mEq/L Carbon Dioxide 26 (23-29) mEq/L BUN 24 H (6-20) mg/dL Creatinine 1.83 H (0.70-1.30) mg/dL Est GFR ( Amer) 47 L (> 60) Est GFR (Non-Af Amer) 38 L (> 60) BUN/Creatinine Ratio 13 (6-26) Glucose 105 (70-105) mg/dL Calculated Osmolality 290 (280-300) Calcium 9.2 (8.6-10.3) mg/dL Troponin I < 0.03 (< 0.04) ng/mL - Radiology Data Radiology results reviewed: Yes I reviewed the patient's radiology results. Chest X-Ray 09/28/17 16:50 IMPRESSION: No acute cardiopulmonary abnormality. D/ / Ruperto Barbosa / Ruperto Barbosa Interpreting Provider: Ruperto Barbosa - EKG Data EKG attestation: Yes I reviewed and interpreted this EKG. EKG results narrative: 09/28/2017 at 16:42. Normal sinus rhythm. Rate 69. MT 178. QRS 109. QTC 475. Normal axis. No acute ST elevation or depression. Heart Score - Score History: Moderately Suspicious EKG: Normal Age: 45-65 Risk Factors: Equal/Greater than 3 risk factor or history of atherosclerotic disease Troponin: Less than normal limit HEART Score Total: 4 S.B.A.Frankie. - Luis [email or web address].[email or web address].ANishant Situation: Demographics, MOA Background: Presenting Complaint, Relevant PMH, Meds, & Allergies Assessment: Vital Signs, Course and respsone to treatment, Exam Concerns, Patient/Family Expectation, Pertinant Lab Results Recommendation: Barrier(s) to disposition, Recommendation based on pending studies, treatments, or consults S.B.A.Gwen Report Given to: Joce Franklin Repor Time: 18:34
[2017-09-28] MEDS ORDERED: Aspirin 325 MG TABLET PO ONE (16:57)
[2017-09-28 17:23] LABS: Basophils # 0.1 K/mcL (0.0-0.2); Basophils % 0.9 %; Eosinophils # 0.1 K/mcL (0.0-0.6); Eosinophils % 2.1 %; Hematocrit 42.1 % (37.5-50.1); Hemoglobin 15.4 g/dL (12.9-16.9); Immature Granulocytes % 0.9 % (0-4); Lymphocytes # 1.2 K/mcL (0.6-4.6); Lymphocytes % 18.9 %; Mean Corpuscular HGB Conc 36.6 g/dL (31.6-35.5); Mean Corpuscular Hemoglobin 33.4 pg (28.0-33.3); Mean Corpuscular Volume 91.3 fL (83.0-100.0); Mean Platelet Volume 9.6 fL (9.4-12.4); Monocytes # 0.6 K/mcL (0.0-1.3); Monocytes % 9.1 %; Neutrophils # 4.5 K/mcL (1.6-8.9); Platelet Count 230 K/mcL (140-400); Red Blood Count 4.61 M/mcL (4.19-5.50); Red Cell Distribution Width 13.1 % (11.5-14.5); Segmented Neutrophils % 68.1 %
[2017-09-28 17:30] LABS: Prothrombin Time 10.2 Seconds (9.4-12.1)
[2017-09-28 17:33] LABS: Activated Partial Thrombo Time 27.5 Seconds (26.0-36.0)
[2017-09-28 17:47] LABS: BUN/Creatinine Ratio 13 (6-26); Blood Urea Nitrogen 24 mg/dL (6-20); Calcium 9.2 mg/dL (8.6-10.3); Carbon Dioxide 26 mEq/L (23-29); Chloride 102 mEq/L (98-107); Glucose 105 mg/dL (70-105); Osmolality,Calculated 290 (280-300); Potassium 3.5 mEq/L (3.5-5.1); Sodium 138 mEq/L (136-145); eGFR For African Americans 47 (> 60); eGFR For Non-African Americans 38 (> 60)
[2017-09-28 17:48] LABS: Troponin I < 0.03 ng/mL (< 0.04)
[2017-09-28] MEDS ORDERED: 0.9 % Sodium Chloride 1,000 ML IVC ONE (18:19)
--- NOTE | 2017-09-28 18:24 | Emergency Department Note ---
Disposition Clinical Impression: HAKEEM (acute kidney injury) Chest pain Qualifiers: Chest pain type: unspecified Qualified Code(s): R07.9 - Chest pain, unspecified Disposition: Admitted As Inpatient Condition: Good Referrals: Magno Campo MD [Primary Care Provider] - Forms: ED Satisfaction Letter General Adult HPI - General Chief complaint: ED Chest Pain Stated complaint: chest pain Time Seen by Provider: 09/28/17 16:40 Source: patient Mode of arrival: ambulatory Limitations: no limitations - History of Present Illness Pain Scale: 3 - Related Data Home Medications Medication Instructions Recorded Confirmed Furosemide [Lasix] 40 mg PO DAILY PRN 10/13/16 08/02/17 Amiodarone [Cordarone] 200 mg PO BID 03/14/17 08/02/17 Levothyroxine [Synthroid] 88 mcg PO 0630 03/14/17 08/02/17 Sacubitril/Valsartan [Entresto 49 1 tab PO DAILY 03/14/17 08/02/17 mg-51 mg Tablet] Atorvastatin [Lipitor] 40 mg PO HS 08/02/17 08/02/17 Lisinopril 2.5 mg PO DAILY 08/02/17 08/02/17 Spironolactone [Aldactone] 25 mg PO DAILY 08/02/17 08/02/17 Previous Rx's Medication Instructions Recorded Aspirin 81 mg PO DAILY #30 tab.chew 11/28/16 Atorvastatin [Lipitor] 40 mg PO HS #30 tablet 11/28/16 Metoprolol XL (24 HR) Succ [Toprol 25 mg PO DAILY #30 tab.er.24h 11/28/16 Xl] Allergies Allergy/AdvReac Type Severity Reaction Status Date / Time No Known Allergies Allergy Verified 09/28/17 16:39 Constitutional: Denies: fever Cardiovascular: Reports: chest pain Respiratory: Denies: dyspnea Gastrointestinal: Reports: nausea. Denies: abdominal pain, vomiting, diarrhea, constipation Genitourinary: Denies: urgency, dysuria Integumentary: Denies: rash Neurological: Denies: headache, weakness, numbness, paresthesias Past Medical History - Past Medical History Medical history: Reports: atrial fibrillation, cardiomyopathy, CHF, hyperlipidemia, hypertension, myocardial infarction, renal disease, thyroid disease, other Surgical history: Reports: herniorrhaphy Psychiatric history: Reports: anxiety - Social History Smoking Status: Former smoker Smokeless Tobacco Status: No Alcohol use: Reports: none Drug use: Reports: none Physical Exam - General Limitations: no limitations General appearance: alert, in no apparent distress Course Vital Signs Temperature 97.6 F 09/28/17 16:37 Pulse Rate 72 09/28/17 16:37 Respiratory Rate 16 09/28/17 16:37 Blood Pressure 121/82 09/28/17 16:37 O2 Sat by Pulse Oximetry 96 09/28/17 16:37 Temperature 97.6 F 09/28/17 16:37 Pulse Rate 66 09/28/17 18:11 Respiratory Rate 16 09/28/17 18:11 Blood Pressure 108/84 09/28/17 18:11 O2 Sat by Pulse Oximetry 95 09/28/17 18:11 Oxygen Delivery Oxygen Delivery Room Air Medical Decision Making - Lab Data Result diagrams: 09/28/17 17:00 09/28/17 17:00 Lab Results 09/28/17 09/28/17 09/28/17 Range/Units 16:50 17:00 17:00 WBC 6.6 (4.3-11.1) K/mcL RBC 4.61 (4.19-5.50) M/mcL Hgb 15.4 (12.9-16.9) g/dL Hct 42.1 (37.5-50.1) % MCV 91.3 (83.0-100.0) fL MCH 33.4 H (28.0-33.3) pg MCHC 36.6 H (31.6-35.5) g/dL RDW 13.1 (11.5-14.5) % Plt Count 230 (140-400) K/mcL MPV 9.6 (9.4-12.4) fL Immature Gran % 0.9 (0-4) % Seg Neutrophils % 68.1 % Lymphocytes % 18.9 % Monocytes % 9.1 % Eosinophils % 2.1 % Basophils % 0.9 % Neutrophils # 4.5 (1.6-8.9) K/mcL Lymphocytes # 1.2 (0.6-4.6) K/mcL Monocytes # 0.6 (0.0-1.3) K/mcL Eosinophils # 0.1 (0.0-0.6) K/mcL Basophils # 0.1 (0.0-0.2) K/mcL PT 10.2 (9.4-12.1) Seconds INR 1.0 APTT 27.5 (26.0-36.0) Seconds Sodium 138 (136-145) mEq/L Potassium 3.5 (3.5-5.1) mEq/L Chloride 102 (98-107) mEq/L Carbon Dioxide 26 (23-29) mEq/L BUN 24 H (6-20) mg/dL Creatinine 1.83 H (0.70-1.30) mg/dL Est GFR ( Amer) 47 L (> 60) Est GFR (Non-Af Amer) 38 L (> 60) BUN/Creatinine Ratio 13 (6-26) Glucose 105 (70-105) mg/dL Calculated Osmolality 290 (280-300) Calcium 9.2 (8.6-10.3) mg/dL Troponin I < 0.03 (< 0.04) ng/mL Attestation Statement - Attestation Attestation: I examined this patient and my medical decision-making was reviewed with the Resident Physician. I agree with the documented findings, disposition and treatment plan as described except to the extent set forth below. 56 year old male presents to the eD with complaints of chest pain and has a history of dilated cardiomyopathy that was diagnosed and treated last year with an original EF of 10-120% with global hypokinesis. PAtinet states tht he is flushed, diaphoretics, and exertiona dyspnea. His chest pain has otherwise resovled. We will admit to medicine.
[2017-09-28] MEDS ORDERED: Naloxone 0.4 MG/ML INJ IVP PRN (19:22)
[2017-09-28] MEDS ORDERED: Furosemide 40 MG TABLET PO PRN (19:50)
--- NOTE | 2017-09-28 19:58 | Internal Med History&Physical ---
Date of Encounter: 09/28/17 Time of Encounter: 19:58 Internal Medicine - H&P: HPI Chief complaint: chest pain Admitted From: Emergency Dept Plans for Post Hospital Care: Home History of present illness: Mr. Dunn is a 56 year old male has a background history of for hypertension, hyperlipidemia, chronic kidney disease, hypothyroidism, coronary artery disease , atrial fibrillation ( not on A/C unclear reason: need old records from [facility]), CMP, AICD/Defib Patient has ongoing precordial chest pain for more than 3 days. Today his pain was worse and apparently the pain started radiating from his precordial region to his jaw and to the left arm. Patient's is concerned about this new onset of pain. Patient is known to have a coronary artery disease and he had a previously similar kind of a pain when he had a myocardial infarction. Patient denies shortness of breath, nausea, vomiting, abdominal pain, dizziness and diarrhea. Workup in the emergency room: Patient was evaluated in the emergency room. This line labs were drawn. Noted that patient's troponin was negative. Reason for admission: heart score 6: Chest pain to rule out ACS. Family history: Noncontributory Past Med Surg Social Fam HX - Past Medical History Medical history: atrial fibrillation, cardiomyopathy, CHF, hyperlipidemia, hypertension, myocardial infarction, renal disease, thyroid disease, other Psychiatric history: anxiety - Past Surgical History Surgical History: herniorrhaphy - Social History Smoking Status: Former smoker Smokeless Tobacco Status: No Alcohol use: none Drug use: none - Family History Mother Adopted: Yes Living Status: Unknown Internal Medicine - H&P: Meds Furosemide [Lasix] 40 mg PO DAILY PRN 10/13/16 [History] Aspirin 81 mg PO DAILY #30 tab.chew 11/28/16 [Rx] Atorvastatin [Lipitor] 40 mg PO HS #30 tablet 11/28/16 [Rx] Metoprolol XL (24 HR) Succ [Toprol Xl] 25 mg PO DAILY #30 tab.er.24h 11/28/16 [ Rx] Amiodarone [Cordarone] 200 mg PO BID 03/14/17 [History] Levothyroxine [Synthroid] 88 mcg PO 0630 03/14/17 [History] Sacubitril/Valsartan [Entresto 49 mg-51 mg Tablet] 1 tab PO BID 03/14/17 [ History] Lisinopril 2.5 mg PO DAILY 08/02/17 [History] Spironolactone [Aldactone] 25 mg PO DAILY 08/02/17 [History] 3 Allergy/AdvReac Type Severity Reaction Status Date / Time No Known Allergies Allergy Verified 09/28/17 16:39 All Systems PM: A 10-system review of systems was performed and is negative for pertinent findings except as documented above in the HPI. - Constitutional Constitutional: no chills, no fever(s), no night sweats - EENT Eyes: no change in vision, no discharge, no pain, no photophobia Ears: no ear discharge, no ear pain, no tinnitus Nose, mouth and throat: no dysphagia, no nasal discharge, no neck pain, no sore throat - Cardiovascular Cardiovascular ROS IM: chest pain, no diaphoresis, no dyspnea, no lightheadedness, no palpitations, no syncope - Respiratory Respiratory: no cough, no dyspnea, no wheezing, no excessive phlegm production - Gastrointestinal Gastrointestinal: no abdominal pain, no diarrhea, no hematemesis, no hematochezia, no melena, no nausea, no vomiting - Musculoskeletal Musculoskeletal ROS IM: no numbness, no tingling - Integumentary Integumentary IM: no rash, no unusual bruising - Neurological Neurological ROS: no confusion, no convulsions, no focal weakness, no numbness, no tingling, no tremor(s) - Hematologic/Lymphatic Hematologic/Lymphatic: no easy bruising - Constitutional Vitals: Temp Pulse Resp BP Pulse Ox 97.6 F 66 18 120/76 95 09/28/17 16:37 09/28/17 18:11 09/28/17 19:24 09/28/17 19:24 09/28/17 18:11 General appearance: Present: A&O X 3, pleasant, no acute distress, answers questions appropriately - Head Head exam: Present: atraumatic, normocephalic - Eye Eye exam: Present: PERRL, conjuntiva pink, sclera anicteric Pupils: Present: PERRL - Neck Neck exam general surgery: Present: supple, trachea midline. Absent: lymphadenopathy - Respiratory Respiratory exam: Present: CTAB. Absent: accessory muscle use, rales, rhonchi, wheezes - Cardiovascular Cardiovascular exam: Present: RRR, +S1, +S2. Absent: diastolic murmur, gallop, rubs, systolic murmur - GI/Abdominal GI/Abdominal exam: Present: normal bowel sounds, soft, no peritoneal signs. Absent: distended, tenderness - Extremities Exam Extremities exam: Present: warm, radial pulses palpable and symmetrical. Absent : calf tenderness, cyanotic, pedal edema - Neurological Exam Neurological exam: Present: CN II-XII intact, oriented X3, no focal deficits. Absent: pronater drift, facial droop, speech deficit - Skin Skin exam: Present: dry, intact Internal Med - H&P Results - Labs CBC & Chem 7: 09/28/17 17:00 09/28/17 17:00 - Assessment and plan (1) Chest pain Current Visit: Yes Status: Acute Assessment and plan: 56/ male Admitted with chest pain. Multiple comorbid conditions. Plan: Admit as observation. Cycle troponin. Resume home medication. Echocardiogram. 3 troponins negative/echocardiogram normal: Please call cardiology. I examined this patient in the emergency room #2. Plan of care explained to the patient and his . Patient's is keen to get EGD for her during this hospitalization if there is no issue in terms of cardiology. Qualifiers: Chest pain type: unspecified Qualified Code(s): R07.9 - Chest pain, unspecified (2) CAD (coronary artery disease) Current Visit: No Status: Chronic Assessment and plan: Patient does have a severe coronary artery disease. Please review the previous cardiology consultation for the details. Qualifiers: Coronary Disease-Associated Artery/Lesion type: [place] artery [place] vs. transplanted heart: [place] heart Associated angina: without angina Qualified Code(s): I25.10 - Atherosclerotic heart disease of [place] coronary artery without angina pectoris (3) Ischemic cardiomyopathy Current Visit: No Status: Chronic Assessment and plan: Patient does have ischemic cardiac myopathy. Patient does have a AICD/defibrillator. Patient denies any shock. Patient was evaluated by the [facility] in [place]. We need him medical records from above places (4) Chronic kidney disease Current Visit: No Status: Chronic Assessment and plan: is known to have a chronic kidney disease. We will monitor patient's BUN/creatinine. Qualifiers: Chronic kidney disease stage: stage 3 (moderate) Qualified Code(s): N18.3 - Chronic kidney disease, stage 3 (moderate) (5) Hypertension Current Visit: No Status: Chronic Assessment and plan: Patient is known to have a elevated blood pressure. At this point patient's blood pressure is within acceptable range. Next line we will continue the antihypertensive medication. Qualifiers: Hypertension type: essential hypertension Qualified Code(s): I10 - Essential (primary) hypertension (6) DVT prophylaxis Current Visit: Yes Status: Acute Assessment and plan: Heparin Medical decision making: This patient has a moderate to severe risk of worsening in spite of being on appropriate medication due to the underlying complex comorbid conditions. - Time Spent With Patient Total time spent is greater than 50% in coordination of care (as documented) at patient's floor/unit and/or counseling patient:
[2017-09-28] MEDS: *HR* Heparin 5,000 UNIT/ML VIAL SQ SCH (22:25)
[2017-09-28] MEDS: *HR* Amiodarone 200 MG TABLET PO SCH (22:25)
[2017-09-28] MEDS: SACUBITRIL/VALSARTAN 49/51 MG TABLET PO SCH (22:25)
[2017-09-29 02:36] LABS: Activated Partial Thrombo Time 27.5 Seconds (26.0-36.0); Prothrombin Time 10.6 Seconds (9.4-12.1)
[2017-09-29 02:39] LABS: Alanine Aminotransferase 82 Units/L (7-52); Albumin 3.8 g/dL (3.5-5.7); Albumin/Globulin Ratio 1.6 (1.1-2.2); Alkaline Phosphatase 57 Units/L (34-104); Aspartate Amino Transferase 42 Units/L (13-39); BUN/Creatinine Ratio 16 (6-26); Bilirubin,Total 0.6 mg/dL (0.3-1.0); Blood Urea Nitrogen 28 mg/dL (6-20); Calcium 8.7 mg/dL (8.6-10.3); Carbon Dioxide 25 mEq/L (23-29); Chloride 105 mEq/L (98-107); Chol/HDL Ratio 4.5 (0-4.9); Cholesterol 194 mg/dL (< 200); Globulin 2.4 g/dL (2.4-3.5); Glucose 112 mg/dL (70-105); HDL Cholesterol 43 mg/dL (40-59); Magnesium 2.6 mg/dL (1.6-2.6); Osmolality,Calculated 290 (280-300); Phosphorous 3.5 mg/dL (2.7-4.5); Potassium 3.6 mEq/L (3.5-5.1); Sodium 137 mEq/L (136-145); Total Protein 6.2 g/dL (6.4-8.9); Triglycerides 419 mg/dL (< 150); eGFR For African Americans 50 (> 60); eGFR For Non-African Americans 41 (> 60)
[2017-09-29 02:46] LABS: Basophils # 0.1 K/mcL (0.0-0.2); Basophils % 0.9 %; Eosinophils # 0.2 K/mcL (0.0-0.6); Eosinophils % 2.6 %; Hematocrit 39.1 % (37.5-50.1); Immature Granulocytes % 0.9 % (0-4); Lymphocytes # 1.4 K/mcL (0.6-4.6); Lymphocytes % 24.5 %; Mean Corpuscular HGB Conc 34.8 g/dL (31.6-35.5); Mean Corpuscular Hemoglobin 32.2 pg (28.0-33.3); Mean Corpuscular Volume 92.4 fL (83.0-100.0); Mean Platelet Volume 9.5 fL (9.4-12.4); Monocytes # 0.6 K/mcL (0.0-1.3); Neutrophils # 3.4 K/mcL (1.6-8.9); Platelet Count 186 K/mcL (140-400); Red Blood Count 4.23 M/mcL (4.19-5.50); Red Cell Distribution Width 13.3 % (11.5-14.5); Segmented Neutrophils % 60.1 %
[2017-09-29 02:56] LABS: Hemoglobin 13.6 g/dL (12.9-16.9)
[2017-09-29] MEDS: *HR* Heparin 5,000 UNIT/ML VIAL SQ SCH ×3 (06:03→20:52)
[2017-09-29] MEDS ORDERED: Spironolactone 25 MG TABLET PO SCH (09:00)
[2017-09-29] MEDS ORDERED: Metoprolol XL (24 HR) Succ 25 MG TAB.ER.24H PO SCH (09:00)
[2017-09-29] MEDS: Aspirin 81 MG TAB.CHEW PO SCH (09:25)
[2017-09-29] MEDS: SACUBITRIL/VALSARTAN 49/51 MG TABLET PO SCH ×2 (09:25→20:52)
[2017-09-29] MEDS: *HR* Amiodarone 200 MG TABLET PO SCH ×2 (09:25→20:52)
--- NOTE | 2017-09-29 10:14 | Internal Med Progress Note ---
Date of Encounter: 09/29/17 Time of Encounter: 10:14 - Assessment and plan (1) Chest pain Current Visit: Yes Status: Acute Assessment and plan: I did review of [facility] records-according to cardiology note on 03/08/[address] Rico's entry-"Last TTE EF 20% up from 10%, moderately dilated LV, mild LVH. He has an occluded LAD. Episodes of VF/syncope from end 2013 til spring 2014 resolved after starting amiodarone - last DLCO stable/improved at 68% compared to 60% with normal spirometry. In November he had multiple ICD therapies for VF while he was off of his cardiac meds including BB and amiodarone and while intoxicated. Since then, he has resumed his medications and not had any ICD shocks including last ICD interrogation 02/2017 showing no events. "-"LHC by Dr. Marshall at [facility] [place] in 2013 with patient reported unsuccessful attempt at MATH AND SCIENCES DEPARTMENT CHAIR PCI. He was referred to a surgeon in [place] who deemed him an unsuitable CABG candidate at that time. Last LHC 09/2016 shows stable CAD with LAD MATH AND SCIENCES DEPARTMENT CHAIR filled by right to left collaterals" Repeat echo-09/28/2017- improved EF with LVEF 35-40% Mild left ventricular diastolic dysfunction no significant valvular dysfunction Troponins have been negative EKG with no ST-T wave abnormalities I did speak with Dr. Rico concerning this case-he advises to place the patient on Imdur and have the patient follow-up as an outpatient with cardiology Qualifiers: Chest pain type: unspecified Qualified Code(s): R07.9 - Chest pain, unspecified (2) CAD (coronary artery disease) Current Visit: No Status: Chronic Assessment and plan: Patient does have a severe coronary artery disease. Continue with aspirin and statin beta maci Continuous cardiac monitoring Nitroglycerin as needed for chest pain Qualifiers: Coronary Disease-Associated Artery/Lesion type: [place] artery [place] vs. transplanted heart: [place] heart Associated angina: without angina Qualified Code(s): I25.10 - Atherosclerotic heart disease of [place] coronary artery without angina pectoris (3) Ischemic cardiomyopathy Current Visit: No Status: Chronic Assessment and plan: Patient does have ischemic cardiac myopathy. Patient does have a AICD/defibrillator. Patient denies any shock. Patient was evaluated by the [facility].- Awaiting records Echo does reveal improvement of EF 35-40% Continue with Lasix spirolactone (4) Chronic kidney disease Current Visit: No Status: Chronic Assessment and plan: is known to have a chronic kidney disease.-Appears his baseline creatinine is around 1.3-1.7 today. We will monitor and recheck in the a.m. Avoid nephrotoxins Qualifiers: Chronic kidney disease stage: stage 3 (moderate) Qualified Code(s): N18.3 - Chronic kidney disease, stage 3 (moderate) (5) Hypertension Current Visit: No Status: Chronic Assessment and plan: Patient is known to have a elevated blood pressure. At this point patient's blood pressure is within acceptable range. Next line we will continue the antihypertensive medication. Qualifiers: Hypertension type: essential hypertension Qualified Code(s): I10 - Essential (primary) hypertension (6) DVT prophylaxis Current Visit: Yes Status: Acute Assessment and plan: Heparin - Time Spent With Patient Total time spent is greater than 50% in coordination of care (as documented) at patient's floor/unit and/or counseling patient: - Subjective Interval history: This patient is new to me I did review medical records. Presently patient is lying in bed he does complain of chest pressure however this is reproducible upon outpatient of chest. I did review echo results as well as lab results with the patient did speak with Dr. Rico concerning the patient and explained to the patient his recommendations of indoor and follow-up as outpatient. Patient does have elevated creatinine at this time we will keep overnight and monitor patient verbalized understanding of treatment plan - Constitutional Vitals: Temp Pulse Resp BP Pulse Ox 97.9 F 53 16 108/71 97 09/29/17 07:15 09/29/17 07:15 09/29/17 07:15 09/29/17 07:15 09/29/17 08:05 General appearance: Present: A&O X 3, pleasant, no acute distress, answers questions appropriately - Head Head exam: Present: atraumatic, normocephalic - Eye Eye exam: Present: PERRL, conjuntiva pink, sclera anicteric Pupils: Present: PERRL - Neck Neck exam general surgery: Present: supple, trachea midline. Absent: lymphadenopathy - Respiratory Respiratory exam: Present: CTAB. Absent: accessory muscle use, rales, rhonchi, wheezes - Cardiovascular Cardiovascular exam: Present: RRR, +S1, +S2. Absent: diastolic murmur, gallop, rubs, systolic murmur - GI/Abdominal GI/Abdominal exam: Present: normal bowel sounds, soft, no peritoneal signs. Absent: distended, tenderness - Extremities Exam Extremities exam: Present: warm, radial pulses palpable and symmetrical. Absent : calf tenderness, cyanotic, pedal edema - Neurological Exam Neurological exam: Present: CN II-XII intact, oriented X3, no focal deficits. Absent: pronater drift, facial droop, speech deficit - Skin Skin exam: Present: dry, intact Internal Medicine: Result - Labs CBC & Chem 7: 09/29/17 02:04 09/29/17 02:04 Labs: Short CBC 09/29/17 Range/Units 02:04 WBC 5.7 (4.3-11.1) K/mcL Hgb 13.6 D (12.9-16.9) g/dL Hct 39.1 (37.5-50.1) % Plt Count 186 (140-400) K/mcL Neutrophils # 3.4 (1.6-8.9) K/mcL BMP 09/29/17 02:04 Sodium 137 Potassium 3.6 Chloride 105 Carbon Dioxide 25 BUN 28 H Creatinine 1.72 H Glucose 112 H Calcium 8.7 Cardiac Enzymes 09/28/17 09/29/17 09/29/17 Range/Units 20:23 02:04 08:04 Troponin I < 0.03 < 0.03 < 0.03 (< 0.04) ng/mL Liver Function 09/29/17 Range/Units 02:04 Total Bilirubin 0.6 (0.3-1.0) mg/dL AST 42 H (13-39) Units/L ALT 82 H (7-52) Units/L Alkaline Phosphatase 57 (34-104) Units/L Albumin 3.8 (3.5-5.7) g/dL - ABG Interpretation ABG results: PT/INR, D-dimer PT 10.6 Seconds (9.4-12.1) 09/29/17 02:04 - Impressions Impressions Echocardiogram 09/28/17 19:51 Impressions: Mild left ventricular diastolic dysfunction. No significant valvular dysfunction. LVEF 35-40%. Improved since last evaluation Left Ventricular Wall Motion: Rest Echo Findings The apex, apical inferior, mid inferior, basal inferior, apical anterior, mid anterior, basal anterior, apical septal, mid inferior septal, basal inferior septal, apical lateral, mid anterior lateral, basal anterior lateral, mid anterior septal, mid inferior lateral, basal anterior septal and basal inferior lateral wells were hypokinetic. Findings: Study Quality * Technically adequate exam. Right Ventricle * Normal right ventricular structure and function. Aortic Valve * Trileaflet aortic valve with normal function. Mitral Valve * Normal mitral valve structure and function. Aorta * Normally sized aortic root. Pericardium * The pericardium appears normal. ECG Findings * Normal sinus rhythm. Left Atrium * Normal left atrial size. Tricuspid Valve * Trace tricuspid regurgitation. * No tricuspid stenosis. * Estimated RVSP is 31 mmHg. Left Ventricle * LVEF 35-40%. * Mild left ventricular diastolic dysfunction. Pulmonic Valve * No pulmonic stenosis. * No pulmonic regurgitation. IVC * The IVC is not well evaluated. Right Atrium * Right atrium is not well visualized. Interatrial Septum * Interatrial septum not well evaluated. Consult Discharge Plan - Plan Referrals: Magno Campo MD [Primary Care Provider] -
--- NOTE | 2017-09-29 11:11 | Event Note ---
Date of Encounter: 09/29/17 Time of Encounter: 11:00 - Cardiology Event Note LHC 09/2016 with LAD CANCELING AND CUTTING CONTROL CLERK and collaterals. EF at that time 15%. Repeat TTE this admission EF 35-40% and ruled out for NH. Reviewed [facility] documents - no LHC or PCI seen, patient underwent noninvasive testing only. Add Imdur 30mg, can fu as outpatient.
[2017-09-29] MEDS ORDERED: 0.9 % Sodium Chloride 1,000 ML IVC SCH (11:45)
[2017-09-29] MEDS: Isosorbide MONOnitrate (24 HR) 30 MG TAB.ER.24H PO SCH (15:08)
[2017-09-30 05:53] LABS: Basophils % 0.7 %; Eosinophils # 0.2 K/mcL (0.0-0.6); Eosinophils % 3.5 %; Hematocrit 39.8 % (37.5-50.1); Hemoglobin 14.3 g/dL (12.9-16.9); Immature Granulocytes % 0.9 % (0-4); Lymphocytes # 1.1 K/mcL (0.6-4.6); Lymphocytes % 20.7 %; Mean Corpuscular HGB Conc 35.9 g/dL (31.6-35.5); Mean Corpuscular Hemoglobin 33.7 pg (28.0-33.3); Mean Corpuscular Volume 93.9 fL (83.0-100.0); Mean Platelet Volume 9.5 fL (9.4-12.4); Monocytes # 0.6 K/mcL (0.0-1.3); Monocytes % 10.8 %; Neutrophils # 3.5 K/mcL (1.6-8.9); Platelet Count 165 K/mcL (140-400); Red Blood Count 4.24 M/mcL (4.19-5.50); Red Cell Distribution Width 13.2 % (11.5-14.5); Segmented Neutrophils % 63.4 %
[2017-09-30] MEDS: *HR* Heparin 5,000 UNIT/ML VIAL SQ SCH (06:08)
[2017-09-30 06:12] LABS: BUN/Creatinine Ratio 15 (6-26); Blood Urea Nitrogen 21 mg/dL (6-20); Calcium 8.8 mg/dL (8.6-10.3); Carbon Dioxide 26 mEq/L (23-29); Chloride 106 mEq/L (98-107); Glucose 103 mg/dL (70-105); Osmolality,Calculated 285 (280-300); Potassium 4.3 mEq/L (3.5-5.1); Sodium 136 mEq/L (136-145); eGFR For African Americans > 60 (> 60); eGFR For Non-African Americans 52 (> 60)
[2017-09-30 07:10] VITALS: BP 112/66
[2017-09-30] MEDS ORDERED: Isosorbide MONOnitrate (24 HR) 30 MG TAB.ER.24H PO SCH (09:00)
[2017-09-30] MEDS: Aspirin 81 MG TAB.CHEW PO SCH (09:40)
[2017-09-30] MEDS: Isosorbide MONOnitrate (24 HR) 30 MG TAB.ER.24H PO SCH (09:40)
[2017-09-30] MEDS: SACUBITRIL/VALSARTAN 49/51 MG TABLET PO SCH (09:40)
[2017-09-30] MEDS ORDERED: Metoprolol XL (24 HR) Succ 25 MG TAB.ER.24H PO SCH (10:00)
[2017-09-30] MEDS: *HR* Amiodarone 200 MG TABLET PO SCH (10:33)
--- NOTE | 2017-09-30 14:38 | Discharge Summary ---
- NOTES TO OUTPATIENT PROVIDER Notes to Outpatient Provider: Patient is follow up with cardiology as outpatiet Started on Imdur per cardiology , Metoprolol decreased dt bradycardia Orders not resulted at time of discharge: Pending orders 09/29/17 13:35 EKG [ECG 12 lead ECG] [ECG] Routine Date of Encounter: 09/30/17 Time of Encounter: 14:36 - Discharge Diagnosis (1) Chest pain Priority: Primary Status: Acute Qualifiers: Chest pain type: unspecified Qualified Code(s): R07.9 - Chest pain, unspecified (2) CAD (coronary artery disease) Priority: Secondary Status: Chronic Qualifiers: Coronary Disease-Associated Artery/Lesion type: [place] artery [place] vs. transplanted heart: [place] heart Associated angina: without angina Qualified Code(s): I25.10 - Atherosclerotic heart disease of [place] coronary artery without angina pectoris (3) Ischemic cardiomyopathy Priority: Secondary Status: Chronic (4) Chronic kidney disease Priority: Secondary Status: Chronic Qualifiers: Chronic kidney disease stage: stage 3 (moderate) Qualified Code(s): N18.3 - Chronic kidney disease, stage 3 (moderate) (5) Hypertension Priority: Secondary Status: Chronic Qualifiers: Hypertension type: essential hypertension Qualified Code(s): I10 - Essential (primary) hypertension Hospital course: Mr. Dunn is a 56 year old male past medical history of hypertension hyperlipidemia chronic kidney disease hypothyroidism coronary artery disease atrial fibrillation on aspirin CMP AICD/defib. According to the patient he has been experiencing ongoing precordial chest pain for more than 3 days. Pain started radiating from precordial region to his jaw to his left arm. He was seen at the [facility] emergency room EKG with no ST-T wave abnormalities chest x-ray with no acute process troponin negative 4. Echo was completed was improved from previous EF 35-40% no significant valvular dysfunction mild left ventricular diastolic dysfunction. I did speak with cardiology concerning this patient and reviewed the case. Dr. Rico recommending Imdur and to follow-up in the office next week. Patient's creatinine was elevated is watched overnight and it has returned back to baseline. He did have some bradycardia with heart rate low 50s, reviewed with Dr. Busch advised to decrease beta maci. Patient has been hemodynamically stable he is currently chest pain free. Advised patient to continue medications as prescribed and to follow-up with Dr. Rico next week. He verbalized understanding he is ready for discharge. - Time Spent with Patient Total time spent providing and/or coordinating discharge services: - Discharge Medications Prescriptions: Isosorbide MONOnitrate (24 HR) [Imdur] 30 mg PO DAILY #30 tab.er.24h Metoprolol XL (24 HR) Succ [Toprol Xl] 12.5 mg PO DAILY #30 tab.er.24h Home Medications: Furosemide [Lasix] 40 mg PO DAILY PRN 10/13/16 [History] Aspirin 81 mg PO DAILY #30 tab.chew 11/28/16 [Rx] Atorvastatin [Lipitor] 40 mg PO HS #30 tablet 11/28/16 [Rx] Amiodarone [Cordarone] 200 mg PO BID 03/14/17 [History] Levothyroxine [Synthroid] 88 mcg PO 0630 03/14/17 [History] Sacubitril/Valsartan [Entresto 49 mg-51 mg Tablet] 1 tab PO BID 03/14/17 [ History] Lisinopril 2.5 mg PO DAILY 08/02/17 [History] Spironolactone [Aldactone] 25 mg PO DAILY 08/02/17 [History] Isosorbide MONOnitrate (24 HR) [Imdur] 30 mg PO DAILY #30 tab.er.24h 09/30/17 [ Rx] Metoprolol XL (24 HR) Succ [Toprol Xl] 12.5 mg PO DAILY #30 tab.er.24h 09/30/17 [Rx] Allergies/Adverse Reactions: 3 Allergy/AdvReac Type Severity Reaction Status Date / Time No Known Allergies Allergy Verified 09/28/17 16:39 Date of admission: 09/28/17 18:53 Primary care physician: Magno Campo MD Discharging clinician: Brandee Whitmore Anticipated date of discharge: 09/30/17 - Constitutional Vitals: Temp Pulse Resp BP Pulse Ox 98 F 52 16 112/66 95 09/30/17 07:10 09/30/17 07:10 09/30/17 07:10 09/30/17 07:10 09/30/17 07:10 General appearance: Present: A&O X 3, pleasant, no acute distress, answers questions appropriately - Head Head exam: Present: atraumatic, normocephalic - Eye Eye exam: Present: PERRL, conjuntiva pink, sclera anicteric Pupils: Present: PERRL - Neck Neck exam general surgery: Present: supple, trachea midline. Absent: lymphadenopathy - Respiratory Respiratory exam: Present: CTAB. Absent: accessory muscle use, rales, rhonchi, wheezes - Cardiovascular Cardiovascular exam: Present: RRR, +S1, +S2. Absent: diastolic murmur, gallop, rubs, systolic murmur - GI/Abdominal GI/Abdominal exam: Present: normal bowel sounds, soft, no peritoneal signs. Absent: distended, tenderness - Extremities Exam Extremities exam: Present: warm, radial pulses palpable and symmetrical. Absent : calf tenderness, cyanotic, pedal edema - Neurological Exam Neurological exam: Present: CN II-XII intact, oriented X3, no focal deficits. Absent: pronater drift, facial droop, speech deficit - Skin Skin exam: Present: dry, intact - Patient Status Disposition: Home, Self-Care Condition: Good Functional capacity at discharge: independent ambulation Overall status at discharge: patient is back to baseline - Discharge Instructions Follow Up With: Magno Campo MD [Primary Care Provider] - Ector Rico MD [Partnered Physician] - - Diet and Activity Activity: resume usual activities as tolerated Diet: low fat, low cholesterol, low salt diet
--- NOTE | 2017-10-01 13:13 | Electrocardiograph Report ---
[address] [place] [address] Test Date: 2017-09-28 Pat Name: Chaparro Dunn Department: 103 Room: 3B Gender: M Supervisor Cd Area: EZEQUIEL : 1960 Requested By: Dandy Almonte Order Number: [id number] Reading MD: Ector Rico Measurements Intervals [place] Rate: 69 P: 47 W[place]: 178 QRS: 1 QRSD: 109 T: 46 QT: 455 QTc: 475 Interpretive Statements SINUS RHYTHM POSSIBLE ANTERIOR MYOCARDIAL INFARCTION, OF INDETERMINATE AGE Electronically Signed On 10-01-2017 9:09:32 EDT by Ector Rico
--- NOTE | 2017-10-01 13:14 | Electrocardiograph Report ---
[address] [place], [place] [address] Test Date: 2017-09-29 Pat Name: Chaparro Dunn Department: 113 Room: 3B Gender: M Dovetailer: : 1960 Requested By: Brandee Whitmore Order Number: [id number] Reading MD: Ector Rico Measurements Intervals [place] Rate: 51 P: 238 AL: 156 QRS: -67 QRSD: 102 T: 124 QT: 485 QTc: 460 Interpretive Statements SINUS BRADYCARDIA Poor R wave progression INFERIOR MYOCARDIAL INFARCTION, OF INDETERMINATE AGE Electronically Signed On 10-01-2017 10:02:09 EDT by Ector Rico
== END 2017-09-30 17:15 | disposition home or self-care (01) ==
LOC: 3BNU 16:33 → EMEROO 16:33 → 3BNU 19:30
PROVIDERS: ADMIT Internal Medicine; ATTEND Internal Medicine